=== PATIENT | male | born 1985 ===

== ENCOUNTER 2018-01-08 15:26 | Emergency (ER) | payer MEDICAID ==
[2018-01-08 15:33] VITALS: BP 144/78; PULSE 80; RESP 20; TEMP 98.4; O2SAT 100
--- NOTE | 2018-01-08 16:29 | C.PDOC ---
History Of Present Illness 32 year old male presents to the ED stating that he had a bowel movement today and noticed a "worm" present. Patient denies fever, chills, nausea, vomit, diarrhea, abdominal pain, rectal bleed, back pain, urinary symptoms, recent travel. Time Seen by Provider: 01/08/18 15:38 Chief Complaint (Nursing): GI Problem History Per: Patient History/Exam Limitations: no limitations Onset/Duration Of Symptoms: Hrs Current Symptoms Are (Timing): Still Present Severity: None Radiation Of Pain To:: None Quality Of Discomfort: Unable To Describe Exacerbating Factors: None Alleviating Factors: None Last Bowel Movement: Today Recent travel outside of the [place]: No Additional History Per: Patient Past Medical History Reviewed: Historical Data, Nursing Documentation, Vital Signs Vital Signs: Last Vital Signs Temp 98.4 F 01/08/18 15:30 Pulse 80 01/08/18 15:30 Resp 20 01/08/18 16:57 BP 144/78 01/08/18 15:30 Pulse Ox 100 01/08/18 16:49 - Medical History PMH: HTN Surgical History: No Surg Hx Family History: States: Unknown Family Hx - Social History Hx Alcohol Use: No Hx Substance Use: No - Immunization History Hx Tetanus Toxoid Vaccination: No Hx Influenza Vaccination: No Hx Pneumococcal Vaccination: No Review Of Systems Constitutional: Negative for: Fever, Chills Cardiovascular: Negative for: Chest Pain Respiratory: Negative for: Shortness of Breath Gastrointestinal: Negative for: Vomiting, Abdominal Pain, Diarrhea Skin: Negative for: Rash Neurological: Negative for: Weakness, Numbness Physical Exam - Physical Exam Appears: Non-toxic, No Acute Distress Skin: Normal Color, Warm, Dry Head: Atraumatic, Normacephalic Eye(s): bilateral: Normal Inspection Nose: No Discharge Oral Mucosa: Moist Neck: Normal ROM, Supple Gastrointestinal/Abdominal: Soft, No Tenderness, No Guarding, No Rebound Extremity: Normal ROM, No Tenderness, No Swelling Neurological/Psych: Oriented x3 Gait: Steady ED Course And Treatment O2 Sat by Pulse Oximetry: 100 (On RA) Pulse Ox Interpretation: Normal Medical Decision Making Medical Decision Making: Assessment: Normal exam Plan: * OVA and parasite * Fecal leukocytes Patient brought a small bag of stool sample with him with no gross worm visualized. Patient was able to go and provide stool sample in the ED. clinical impression: stool screening test Disposition Counseled Patient/Family Regarding: Studies Performed, Diagnosis, Need For Followup - Disposition Disposition: HOME/ ROUTINE Disposition Time: 16:46 Condition: STABLE Additional Instructions: follow up with your doctor or clinic in 2 days call to make an appointment return to ER if symptoms worsens or progress your stool results should be available in 1-2 days. Instructions: Stool Test Forms: [facility] (Occ[place]), General Discharge Instructions - Clinical Impression Clinical Impression: Encounter for screening fecal occult blood testing - Scribe Statement The provider has reviewed the documentation as recorded by the Scribe Santos Newton All medical record entries made by the Scribe were at my direction and personally dictated by me. I have reviewed the chart and agree that the record accurately reflects my personal performance of the history, physical exam, medical decision making, and the department course for this patient. I have also personally directed, reviewed, and agree with the discharge instructions and disposition.
== END 2018-01-08 16:57 | disposition home or self-care (01) ==
LOC: C.ER 15:26
DX: R19.5 Other fecal abnormalities (principal)

== ENCOUNTER 2018-04-24 19:19 | Emergency (ER) | payer MEDICAID ==
[2018-04-24] MEDS ORDERED: Amoxicillin-Clav 875-125 mg Tab PO STA (19:44)
--- NOTE | 2018-04-24 19:48 | C.PDOC ---
History Of Present Illness 32 yo male w/o significant PMHx come in for evaluation of cold sx for past 1 week associated with sore throat, dry cough. Pt reports, took oTC medication without significant improvement, " throat pain and swelling worsen", noted some neck swelling. Otherwise, pt denies high fever, chills, headache, dizziness, drooling, neck pain, CP, SOB, dyspnea, wheezing, abd. pain, V/D, back pain, UTI sx. Ambulate to Ed for evaluation, not in any apparent distress. Time Seen by Provider: 04/24/18 19:37 Chief Complaint (Nursing): ENT Problem History Per: Patient Onset/Duration Of Symptoms: Gradual Past Medical History Reviewed: Historical Data, Nursing Documentation, Vital Signs Vital Signs: Last Vital Signs Temp 99.0 F 04/24/18 19:33 Pulse 99 H 04/24/18 19:33 Resp 18 04/24/18 19:33 BP 144/79 04/24/18 19:33 Pulse Ox 96 04/24/18 19:33 - Medical History PMH: HTN (NO MEDS PER PT) Denies: Chronic Kidney Disease Surgical History: No Surg Hx Family History: States: Unknown Family Hx - Social History Hx Alcohol Use: No Hx Substance Use: No - Immunization History Hx Tetanus Toxoid Vaccination: No Hx Influenza Vaccination: No Hx Pneumococcal Vaccination: No Review Of Systems Except As Marked, All Systems Reviewed And Found Negative. Constitutional: Positive for: Malaise. Negative for: Fever, Chills Eyes: Negative for: Vision Change ENT: Positive for: Ear Pain, Nose Discharge, Nose Congestion, Throat Pain, Throat Swelling. Negative for: Ear Discharge Cardiovascular: Negative for: Chest Pain Respiratory: Positive for: Cough. Negative for: Shortness of Breath, Wheezing Gastrointestinal: Negative for: Nausea, Vomiting, Abdominal Pain, Diarrhea Genitourinary: Negative for: Dysuria Musculoskeletal: Negative for: Neck Pain Skin: Negative for: Rash Neurological: Negative for: Headache, Dizziness Physical Exam - Physical Exam Appears: Well, Non-toxic, No Acute Distress Skin: Normal Color, Warm, Dry, No Rash Head: Normacephalic Eye(s): bilateral: PERRL Ear(s): Bilateral: Normal Nose: No Flaring, Discharge (B/L nasal congestion with scant clear rhinorrhea ) Oral Mucosa: Moist, No Drooling Throat: Erythema (mod B/L), No Exudate (scant B/L), No Drooling Neck: Normal ROM, Trachea Midline, Supple Cardiovascular: Rhythm Regular, No Murmur, No JVD Respiratory: No Decreased Breath Sounds, No Accessory Muscle Use, No Stridor, No Wheezing Gastrointestinal/Abdominal: Soft, No Tenderness, No Distention, No Guarding Extremity: Normal ROM, No Deformity, No Swelling Neurological/Psych: Oriented x3, Normal Speech ED Course And Treatment O2 Sat by Pulse Oximetry: 96 Pulse Ox Interpretation: Normal Progress Note: On re-eval, pt is afebrile, hemodynamicaly stable. Non-toxic. Tolerate Po well in Ed. PulseOx 96% RA. ENT: exam c/w acute pharyngitis. neck : SUpple, (-) meningeal sign, (-) JVD. Lungs: CTA B/L, BS equal B/L. Abd: benign, (-) guarding, (-) rebound. Neurologicaly intact. Pt advised on course of ds. ref. to F/u with PMD, ENT In 2-3 days for re-evaluation. return to ED if any worsening or new changes. Disposition Counseled Patient/Family Regarding: Diagnosis, Need For Followup, Rx Given - Disposition Referrals: [facility] [Outside] Cristopher Escalona MD [Staff Provider] - Disposition: HOME/ ROUTINE Disposition Time: 19:49 Condition: STABLE Additional Instructions: Encourage fluids take medication as prescribed Follow up with PMD, ENT in2 -3 days for re-evaluation as need return to ED if any worsening or new changes. Prescriptions: Amoxicillin/Clavulanate [Augmentin 875 MG-125 MG] 1 tab PO BID #14 tab Prednisone [Deltasone] 40 mg PO DAILY #6 tablet Instructions: Sore Throat, Adult (DC) - Clinical Impression Clinical Impression: Pharyngitis
[2018-04-24] MEDS ORDERED: Amoxicillin-Clav 875-125 mg Tab PO ONE (19:50)
[2018-04-24 20:17] VITALS: BP 130/70; PULSE 80; RESP 14; TEMP 99; O2SAT 99
== END 2018-04-24 20:17 | disposition home or self-care (01) ==
LOC: C.ER 19:19
DX: J02.9 Acute pharyngitis, unspecified (principal)

== ENCOUNTER 2018-05-08 13:19 | Emergency (ER) | payer MEDICAID ==
[2018-05-08 13:29] VITALS: BP 133/83; PULSE 105; RESP 16; TEMP 99.4; O2SAT 95
--- NOTE | 2018-05-08 14:03 | C.PDOC ---
History Of Present Illness 32 yo male w/o significant PMHx come in for evaluation of throat irritation, dry cough gradually developed for past 1 week. Pt reports, was seen here 2 weeks ago due to same complaints, treated with Rx: Augmentin, Prednisone with moderate improvement in sx. Pt admits, " leave in [place] [facility] for past 4-5 weeks ". Pt sts, " as soon as I finish medication developed same symptoms again". Otherwise, pt denies fever, chills, headache, dizziness, drooling, dysphagia, dyspnea, throat tightness or swelling, wheezing, SOB,abd. pain, V/D, denies any other active complaints, denies previous hx of allergy. Ambulate to Ed for evaluation, not in any apparent distress. Time Seen by Provider: 05/08/18 13:31 Chief Complaint (Nursing): ENT Problem History Per: Patient Past Medical History Reviewed: Historical Data, Nursing Documentation, Vital Signs Vital Signs: Last Vital Signs Temp 99.4 F 05/08/18 13:26 Pulse 105 H 05/08/18 13:26 Resp 16 05/08/18 13:26 BP 133/83 05/08/18 13:26 Pulse Ox 95 05/08/18 13:26 - Medical History PMH: HTN Denies: Asthma, CAD, Diabetes, Chronic Kidney Disease Surgical History: No Surg Hx Family History: States: Unknown Family Hx - Social History Hx Tobacco Use: No Hx Alcohol Use: No Hx Substance Use: No - Immunization History Hx Tetanus Toxoid Vaccination: No Hx Influenza Vaccination: No Hx Pneumococcal Vaccination: No Review Of Systems Except As Marked, All Systems Reviewed And Found Negative. Constitutional: Negative for: Fever, Chills ENT: Positive for: Nose Congestion, Throat Pain. Negative for: Ear Discharge, Nose Discharge, Throat Swelling Cardiovascular: Negative for: Chest Pain, Palpitations, Orthopnea, Light Headedness Respiratory: Positive for: Cough. Negative for: Shortness of Breath, Wheezing Gastrointestinal: Negative for: Nausea, Vomiting, Abdominal Pain, Diarrhea Genitourinary: Negative for: Dysuria, Incontinence Musculoskeletal: Negative for: Neck Pain, Shoulder Pain Skin: Negative for: Rash Neurological: Negative for: Weakness, Numbness, Headache, Dizziness Physical Exam - Physical Exam Appears: Well, Non-toxic, No Acute Distress Skin: Normal Color, Warm, Dry, No Rash Head: Normacephalic Eye(s): bilateral: PERRL Ear(s): Bilateral: Normal Nose: No Flaring, No Discharge Oral Mucosa: Moist, No Drooling Tongue: No Swelling Lips: No Swelling Throat: No Erythema, No Drooling, Other (uvul amidline, no edema.) Neck: Normal ROM, Trachea Midline, Supple Cardiovascular: Rhythm Regular, No Murmur, No JVD Respiratory: No Decreased Breath Sounds, No Accessory Muscle Use, No Rales, No Rhonchi, No Stridor, No Wheezing Gastrointestinal/Abdominal: Soft, No Tenderness, No Distention, No Guarding Back: No CVA Tenderness, No Vertebral Tenderness, Paraspinal Tenderness (mild lumbar) Extremity: Normal ROM, No Deformity, No Swelling Neurological/Psych: Oriented x3, Normal Speech, Normal Motor, Normal Sensation, Normal Reflexes ED Course And Treatment O2 Sat by Pulse Oximetry: 95 Pulse Ox Interpretation: Normal Progress Note: On re-eval, pt is afebrile, hemodynamically stable. Non-toxic. Tolerate Po well in ED. PulseOx 95% on RA. ENT: no acute findings. uvula midline, no edema. Neck: Supple, (-) JVD, (-) carotid bruits B/L. Lungs: CTA B/ L, BS equal B/L. Abd: benign, (-) guarding, (-) rebound. Back: (-) CVA tenderness. Neurologically intact. Patient has clinical findings c/w throat irritation, dry cough, recurrent sx for past 3-4 weeks r/o environmental allergy. Pt advised and ref. to F/U with PMD, [facility] In 2-3 days for re- eval. return to ED if any worsening or new changes. Disposition Counseled Patient/Family Regarding: Diagnosis, Need For Followup, Rx Given - Disposition Referrals: [facility] [Outside] Disposition: HOME/ ROUTINE Disposition Time: 14:00 Condition: STABLE Additional Instructions: Avoid allergen likely environmental take medication as prescribed Follow up with PMD, [facility] in 2 days for re-evaluation. return if any new changes. Prescriptions: Famotidine [Pepcid] 20 mg PO BID #10 tab hydrOXYzine HCl [Atarax] 25 mg PO Q12 #10 tab Prednisone [Deltasone] 20 mg PO DAILY #4 tablet Instructions: Adverse Drug Reactions, Adult, House Dust Mite Allergen Extract - Clinical Impression Clinical Impression: Allergic reaction
== END 2018-05-08 14:49 | disposition home or self-care (01) ==
LOC: C.ER 13:19
DX: T78.40XA Allergy, unspecified, initial encounter (principal)

== ENCOUNTER 2018-08-13 15:54 | Emergency (ER) | payer MEDICAID ==
[2018-08-13 16:03] VITALS: BP 143/94; PULSE 94; RESP 18; TEMP 98.6; O2SAT 98
[2018-08-13 17:23] LABS: BARBITURATES, UR NEGATIVE (NEGATIVE); BENZODIAZEPINES, UR NEGATIVE (NEGATIVE); OPIATES, UR NEGATIVE (NEGATIVE); PHENCYCLIDINE, UR NEGATIVE (NEGATIVE)
--- NOTE | 2018-08-13 17:39 | C.PDOC ---
History Of Present Illness 33-year-old male, presents to the emergency department for evaluation of superficial abrasion to hand. Patient states he is currently homeless, and while he was at the custodial sleeping, he states he thinks "someone stuck me with a heroin needle." Patient denies any symptoms, but feels like he has opiates in his system and is requesting a drug test. Time Seen by Provider: 08/13/18 16:08 Chief Complaint (Nursing): Finger,Hand,&Wrist History Per: Patient History/Exam Limitations: no limitations Pain Scale Rating Of: 0 Past Medical History Reviewed: Historical Data, Nursing Documentation, Vital Signs Vital Signs: Last Vital Signs Temp 98.6 F 08/13/18 15:58 Pulse 94 H 08/13/18 15:58 Resp 18 08/13/18 15:58 BP 143/94 H 08/13/18 15:58 Pulse Ox 98 08/13/18 15:58 - Medical History PMH: HTN, Hypercholesterolemia Denies: Asthma, CAD, Diabetes, Chronic Kidney Disease Family History: States: No Known Family Hx - Social History Hx Tobacco Use: No Hx Alcohol Use: No Hx Substance Use: No - Immunization History Hx Tetanus Toxoid Vaccination: No Hx Influenza Vaccination: No Hx Pneumococcal Vaccination: No Review Of Systems Constitutional: Negative for: Fever Gastrointestinal: Negative for: Vomiting Psych: Negative for: Psychosis Physical Exam - Physical Exam Appears: Non-toxic, No Acute Distress Skin: Warm, Dry, No Rash Head: Atraumatic, Normacephalic Eye(s): bilateral: Normal Inspection Nose: Normal Oral Mucosa: Moist Neck: Normal ROM, Supple Chest: Symmetrical Extremity: Normal ROM, No Tenderness, No Deformity, No Swelling, Other ((+) pinpoint macule to the left hand. No puncture wounds seen ) Neurological/Psych: Oriented x3, Normal Speech, Normal Motor Gait: Steady ED Course And Treatment O2 Sat by Pulse Oximetry: 98 (on RA) Pulse Ox Interpretation: Normal (RA) Disposition - Disposition Referrals: at [facility] [Outside] Disposition: HOME/ ROUTINE Disposition Time: 17:38 Condition: STABLE Additional Instructions: Return if worsened. Instructions: Wound Care (DC) Forms: [employer] [facility] (Estonian) - Clinical Impression Clinical Impression: Encounter for medical assessment - Scribe Statement The provider has reviewed the documentation as recorded by the Scribe (Elissa Nix) All medical record entries made by the Scribe were at my direction and personally dictated by me. I have reviewed the chart and agree that the record accurately reflects my personal performance of the history, physical exam, medical decision making, and the department course for this patient. I have also personally directed, reviewed, and agree with the discharge instructions and disposition.
== END 2018-08-13 17:42 | disposition home or self-care (01) ==
LOC: C.ER 15:54
DX: Z00.00 Encounter for general adult medical examination without abnormal findings (principal)

== ENCOUNTER 2018-10-26 13:16 | Inpatient (IN) | payer MEDICAID ==
[2018-10-26] MEDS ORDERED: Sodium Chloride 0.9% 1,000 ML IV ONE (13:55)
[2018-10-26] MEDS ORDERED: Sodium Chloride 0.9% 1,000 ML ONE (14:18)
--- NOTE | 2018-10-26 14:21 | C.PDOC ---
History Of Present Illness 33 y/o male presents to the ED with a 2 day history of cough and congestion. Patient states symptoms have progressed today, he woke with fever and bodyaches. Otherwise he denies any abdominal pain, vomiting, diarrhea, urinary complaints, chest pain, or SOB. HPI: Influenza Time Seen by Provider: 10/26/18 13:46 Chief Complaint: Flu-like Symptoms Chief Complaint (Provider): Flu-like Symptoms History Per: Patient Exam Limitations: no limitations Onset/Duration Of Symptoms: Days (2) Symptoms include: fever, bodyaches, cough, nasal congestion Past Medical History Reviewed: Historical Data, Nursing Documentation, Vital Signs Vital Signs: Last Vital Signs Temp 103 F H 10/26/18 13:19 Pulse 138 H 10/26/18 13:19 Resp 20 10/26/18 13:19 BP 164/94 H 10/26/18 13:19 Pulse Ox 97 10/26/18 13:19 - Medical History PMH: HTN, Hypercholesterolemia Denies: Asthma, CAD, Diabetes, Chronic Kidney Disease Surgical History: No Surg Hx Family History: States: Unknown Family Hx - Social History Hx Tobacco Use: No Hx Alcohol Use: No Hx Substance Use: No - Immunization History Hx Tetanus Toxoid Vaccination: Yes Hx Influenza Vaccination: No Hx Pneumococcal Vaccination: No Review Of Systems Except As Marked, All Systems Reviewed And Found Negative. Constitutional: Positive for: Fever, Other (Bodyaches) ENT: Positive for: Nose Congestion Cardiovascular: Negative for: Chest Pain Respiratory: Positive for: Cough. Negative for: Shortness of Breath Gastrointestinal: Negative for: Vomiting, Abdominal Pain, Diarrhea Genitourinary: Negative for: Dysuria, Hematuria Skin: Negative for: Rash Neurological: Negative for: Weakness, Dizziness Physical Exam - Physical Exam Appears: Non-toxic, No Acute Distress, Other (Febrile, temp 103) Skin: Warm, Dry Head: Atraumatic, Normacephalic Eye(s): bilateral: Normal Inspection, PERRL, EOMI Oral Mucosa: Moist Neck: Normal ROM Chest: Symmetrical Cardiovascular: Rhythm Regular, No Murmur Respiratory: Other (coarse breath sounds bilaterally) Gastrointestinal/Abdominal: Soft, No Tenderness, No Distention Extremity: Bilateral: Atraumatic, Normal Color And Temperature Pulses: Left Dorsalis Pedis: Normal, Right Dorsalis Pedis: Normal Neurological/Psych: Oriented x3 Medical Decision Making Medical Decision Making: Impression: Flu-like symptoms Plan: --CBC, CMP --Flu swab --CXR --IV fluids --30 mg IV Toradol --975 mg PO Tylenol Progress/Updates: Labs reviewed, elevated WBC 12k. (+) Flu A. Patient treated with 75 mg PO Tamiflu. CXR shows +RLL infiltrate. Will treat for pneumonia with IV zithro and rocephin. Patient spiked a fever, temp 103. Given 2nd dose of Tylenol 975mg. 1915 Patient spiked fever again. Will admit patient to [facility], Dr. Omer notified. Dr. Barragan notified for ID consult. IV Toradol was ordered for the 2nd time and then cancelled, however nurse had already administered medication. Patient did receive a total of 60 mg Toradol, 5 hours apart. However, patient weighs 120 kg and has no hx of kidney problems. - Laboratory Results Result Diagrams: 10/26/18 14:12 10/26/18 14:12 Lab Results: + flu A - ECG O2 Sat by Pulse Oximetry: 97 (RA) Pulse Ox Interpretation: Normal - Radiology X-Ray: Read By Radiologist X-Ray Interpretation: Infiltrates Disposition Discussed With .: Jasmin Omer Doctor Will See Patient In The: Hospital Counseled Patient/Family Regarding: Studies Performed, Diagnosis - Disposition Disposition: HOSPITALIZED Disposition Time: 19:19 Condition: FAIR - POA Core Measure Indicators: Pneumonia - Clinical Impression Clinical Impression: Influenza, Pneumonia - Scribe Statement The provider has reviewed the documentation as recorded by the Vianneyiblei Pollack Provider Attestation: All medical record entries made by the Dilshad were at my direction and personally dictated by me. I have reviewed the chart and agree that the record accurately reflects my personal performance of the history, physical exam, medical decision making, and the department course for this patient. I have also personally directed, reviewed, and agree with the discharge instructions and disposition.
[2018-10-26 14:23] LABS: BASO # 0.1 K/uL (0.0-0.2); BASO % 1.1 % (0.0-2.0); EOS # 0.1 K/uL (0.0-0.7); EOS % 0.8 % (0.0-4.0); HEMOGLOBIN 14.5 g/dL (12.0-18.0); LYMPH # 0.6 K/uL (1.0-4.3); LYMPH % 4.8 % (20.0-40.0); MEAN CELL VOLUME 89.5 fL (80.0-94.0); MEAN CORPUSCULAR HEMOGLOBIN 29.9 pg (27.0-31.0); MEAN CORPUSCULAR HGB CONC 33.4 g/dL (33.0-37.0); MEAN PLATELET VOLUME 7.5 fL (7.2-11.7); MONO # 0.5 K/uL (0.0-0.8); MONO % 4.4 % (0.0-10.0); NEUT # 10.7 K/uL (1.8-7.0); NEUT % 88.9 % (50.0-75.0); NRBC % 0.1 % (0.0-2.0); PLATELET COUNT 352 K/uL (130-400); RBC 4.86 Mil/uL (4.40-5.90); RED CELL DISTRIBUTION WIDTH 13.5 % (11.5-14.5)
[2018-10-26 14:37] LABS: ALB/GLOB RATIO 1.5 (1.0-2.1); ALBUMIN 5.1 g/dL (3.5-5.0); ALT/SGPT 33 U/L (21-72); AST/SGOT 34 U/L (17-59); BLOOD UREA NITROGEN 13 mg/dL (9-20); CALCIUM 9.3 mg/dl (8.6-10.4); GFR NON-AFRICAN AMERICAN > 60
[2018-10-26 15:20] LABS: EOSINOPHIL 3 % (0-4); LYMPHOCYTE 5 % (20-40); MONOCYTE 1 % (0-10); NEUTROPHIL 91 % (50-75); PLATELET ESTIMATE NORMAL (NORMAL); TOTAL CELLS COUNTED 100
--- NOTE | 2018-10-26 16:15 | RAD ---
HISTORY: SOB COMPARISON: None available. TECHNIQUE: Chest PA and lateral FINDINGS: Examination limited by habitus and hypoinflation. LUNGS: Medial right lower lobe atelectasis/infiltrate. Please note that chest x-ray has limited sensitivity for the detection of pulmonary masses. PLEURA: No significant pleural effusion identified. No definite pneumothorax . CARDIOVASCULAR: Heart size appears within normal limits. No significant atherosclerotic calcification identified. OSSEOUS STRUCTURES: Degenerative changes. VISUALIZED UPPER ABDOMEN: Unremarkable. OTHER FINDINGS: None. IMPRESSION: Medial right lower lobe atelectasis/infiltrate. Hypoinflation.
[2018-10-26] MEDS: Sodium Chloride 0.9% 1,000 ML IV SCH (16:40)
[2018-10-26] MEDS ORDERED: Azithromycin 500 MG in Sodium Chloride 0.9% 250 ML IVPB STA (18:07)
[2018-10-26] MEDS ORDERED: Azithromycin 500mg/250ML NS 500 MG/250 ML BAG IVPB ONE (18:46)
[2018-10-26 20:13] LABS: VENOUS BLOOD GAS BASE EXCESS -2.2 mmol/L (0.0-2.0); VENOUS BLOOD GAS PCO2 37 mmHg (40-60); VENOUS BLOOD GAS PO2 49 mm/Hg (30-55); VENOUS BLOOD PH 7.39 (7.32-7.43)
[2018-10-26] MEDS ORDERED: Piperacillin/Tazobact 3.375 gm 100 ML IVPB ONE (21:02)
[2018-10-26] MEDS: Piperacillin/Tazobact 3.375 GM in Sodium Chloride 100 ML IVPB SCH (21:10)
[2018-10-27] MEDS: Sodium Chloride 0.9% 1,000 ML IV SCH ×3 (06:43→22:30)
[2018-10-27 08:12] LABS: BASO % 0.5 % (0.0-2.0); EOS % 0.4 % (0.0-4.0); HEMOGLOBIN 12.8 g/dL (12.0-18.0); LYMPH # 0.7 K/uL (1.0-4.3); MEAN CELL VOLUME 89.2 fL (80.0-94.0); MEAN CORPUSCULAR HEMOGLOBIN 29.6 pg (27.0-31.0); MEAN CORPUSCULAR HGB CONC 33.2 g/dL (33.0-37.0); MEAN PLATELET VOLUME 7.2 fL (7.2-11.7); MONO # 0.8 K/uL (0.0-0.8); MONO % 8.8 % (0.0-10.0); NEUT # 7.3 K/uL (1.8-7.0); NEUT % 82.3 % (50.0-75.0); PLATELET COUNT 279 K/uL (130-400); RBC 4.34 Mil/uL (4.40-5.90); RED CELL DISTRIBUTION WIDTH 13.4 % (11.5-14.5); WHITE BLOOD COUNT 8.9 K/uL (4.8-10.8)
[2018-10-27] MEDS: Piperacillin/Tazobact 3.375 GM in Sodium Chloride 100 ML IVPB SCH ×3 (08:26→21:35)
[2018-10-27 08:34] LABS: ALB/GLOB RATIO 1.4 (1.0-2.1); ALBUMIN 4.3 g/dL (3.5-5.0); ALT/SGPT 40 U/L (21-72); AST/SGOT 33 U/L (17-59); BLOOD UREA NITROGEN 13 mg/dL (9-20); CALCIUM 8.5 mg/dl (8.6-10.4); GFR NON-AFRICAN AMERICAN > 60
[2018-10-27] MEDS: Azithromycin 500 MG in Sodium Chloride 0.9% 250 ML IVPB SCH (09:31)
[2018-10-27] MEDS: Enoxaparin 40 mg Syringe SC SCH (09:31)
[2018-10-27 10:46] LABS: BANDS 3 % (0-2); LYMPHOCYTE 7 % (20-40); MONOCYTE 8 % (0-10); NEUTROPHIL 82 % (50-75); PLATELET ESTIMATE NORMAL (NORMAL); STOMATOCYTES SLIGHT; TOTAL CELLS COUNTED 100
--- NOTE | 2018-10-27 15:03 | CP.PCM.CON ---
History of Present Illness - History of Present Illness History of Present Illness: INFECTIOUS DISEASE CONSULT; HPI; 33-year-old male with history of hypertension, hypercholesterolemia, history of herniated disc who was admitted on 10/26/18 with 2 day history of cough, congestion and fevers with severe body aches. Patient states he was outside waiting for transit and felt the cold. Patient also complains of productive cough with yellowish greenish phlegm. On admission, patient was found to have positive influenza A antibody rapid antigen test with chest x-ray showing right lower lobe pneumonia/atelectasis. Patient was also found to be febrile to 103.7 in the ER. Infectious disease consultation requested by PMD for flu and pneumonia. PATIENT WAS STARTED ON BROAD-SPECTRUM ANTIBIOTICS INCLUDING rOCEPHIN 1 DOSE, zITHROMAX 500 MG ONE DOSE AND BY MOUTH tAMIFLU 75 MG. PATIENT DENIES ANY SICK CONTACTS OR RECENT EXPOSURE TO ANYBODY WITH FLU. pATIENT DENIES ANY TRAVEL. pATIENT DENIES HISTORY OF PREVIOUS PNEUMONIA.NO HISTORY OF SMOKING. PMH: HTN, Hypercholesterolemia Denies: Asthma, CAD, Diabetes, Chronic Kidney Disease Surgical History: No Surg Hx Family History: States: Unknown Family Hx - Social History Hx Tobacco Use: No Hx Alcohol Use: No Hx Substance Use: No - Immunization History Hx Tetanus Toxoid Vaccination: Yes Hx Influenza Vaccination: No Hx Pneumococcal Vaccination: No ALLERGY; NKA Review of Systems - Review of Systems All systems: reviewed and no additional remarkable complaints except ( PER HP I.) - Constitutional Constitutional: Chills, Fever - EENT Nose/Mouth/Throat: absent: Mouth Lesions - Cardiovascular Cardiovascular: Dyspnea. absent: Chest Pain - Respiratory Respiratory: Cough, Chest Congestion, Excessive Mucous Production, Change in Mucous Color - Gastrointestinal Gastrointestinal: absent: Abdominal Pain, Diarrhea, Nausea, Vomiting - Genitourinary Genitourinary: absent: Dysuria - Neurological Neurological: absent: Dizziness - Hematologic/Lymphatic Hematologic: As Per HPI Past Patient History - Infectious Disease Hx of Infectious Diseases: None - Past Medical History & Family History Past Medical History?: Yes - Past Social History Smoking Status: Never Smoked - CARDIAC Hx Cardiac Disorders: Yes Hx Hypercholesterolemia: Yes Hx Hypertension: Yes - PULMONARY Hx Respiratory Disorders: No - NEUROLOGICAL Hx Neurological Disorder: No - HEENT Hx HEENT Problems: No - RENAL Hx Chronic Kidney Disease: No - ENDOCRINE/METABOLIC Hx Endocrine Disorders: No - HEMATOLOGICAL/ONCOLOGICAL Hx Blood Disorders: No - INTEGUMENTARY Hx Dermatological Problems: No - MUSCULOSKELETAL/RHEUMATOLOGICAL Hx Musculoskeletal Disorders: No Hx Falls: No - GASTROINTESTINAL Hx Gastrointestinal Disorders: No - GENITOURINARY/GYNECOLOGICAL Hx Genitourinary Disorders: No - PSYCHIATRIC Hx Psychophysiologic Disorder: No Hx Substance Use: No - SURGICAL HISTORY Hx Surgeries: No - ANESTHESIA Hx Anesthesia: No Meds Home Medications: Home Medication List Medication Instructions Recorded Confirmed Type Oseltamivir Phosphate [Tamiflu] 75 mg PO BID #10 capsule 10/26/18 Rx Allergies/Adverse Reactions: Allergies Allergy/AdvReac Type Severity Reaction Status Date / Time No Known Allergies Allergy Verified 10/26/18 13:23 - Medications Medications: Current Medications Acetaminophen (Tylenol 325mg Tab) 650 mg PO Q6 PRN PRN Reason: for pain and fever Enoxaparin Sodium (Lovenox) 40 mg SC DAILY [facility] Last Admin: 10/27/18 09:31 Dose: 40 mg Famotidine (Pepcid) 20 mg PO BID [facility] Last Admin: 10/27/18 09:31 Dose: 20 mg Sodium Chloride (Sodium Chloride 0.9%) 1,000 mls @ 100 mls/hr IV .Q10H [facility] Last Admin: 10/27/18 12:41 Dose: Not Given Azithromycin 500 mg/ Sodium (Chloride) 250 mls @ 250 mls/hr IVPB DAILY [facility]; Protocol Last Admin: 10/27/18 09:31 Dose: 250 mls/hr Piperacillin Sod/Tazobactam (Sod 3.375 gm/ Sodium Chloride) 100 mls @ 200 mls/hr IVPB Q6H [facility]; Protocol Last Admin: 10/27/18 14:00 Dose: 200 mls/hr Oseltamivir Phosphate (Tamiflu Cap) 75 mg PO BID [facility]; Protocol Stop: 10/31/18 20:32 Last Admin: 10/27/18 09:31 Dose: 75 mg Physical Exam - Constitutional Appears: No Acute Distress - Head Exam Head Exam: NORMAL INSPECTION - Eye Exam Eye Exam: EOMI, PERRL - ENT Exam ENT Exam: Normal Oropharynx - Neck Exam Neck exam: Positive for: Normal Inspection - Respiratory Exam Respiratory Exam: Rhonchi (RIGHT-SIDED), NORMAL BREATHING PATTERN (.) - Cardiovascular Exam Cardiovascular Exam: REGULAR RHYTHM, +S1, +S2 - GI/Abdominal Exam GI & Abdominal Exam: Normal Bowel Sounds, Soft. absent: Organomegaly - Extremities Exam Extremities exam: Positive for: normal capillary refill, pedal pulses present. Negative for: calf tenderness, pedal edema - Neurological Exam Neurological exam: Alert, CN II-XII Intact, Oriented x3, Reflexes Normal - Psychiatric Exam Psychiatric exam: Normal Mood - Skin Skin Exam: Normal Color, Warm Results - Vital Signs Recent Vital Signs: Last Vital Signs Temp 100.3 F H 10/27/18 08:06 Pulse 121 H 10/27/18 08:06 Resp 21 10/27/18 08:06 BP 121/64 10/27/18 08:06 Pulse Ox 91 L 10/27/18 08:06 - Labs Result Diagrams: 10/27/18 08:05 10/27/18 08:05 Labs: Laboratory Results - last 24 hr 10/26/18 10/26/18 10/27/18 14:12 20:00 08:05 WBC 8.9 RBC 4.34 L Hgb 12.8 Hct 38.7 MCV 89.2 MCH 29.6 MCHC 33.2 RDW 13.4 Plt Count 279 MPV 7.2 Neut % (Auto) 82.3 H Lymph % (Auto) 8.0 L Vermilion % (Auto) 8.8 Eos % (Auto) 0.4 Baso % (Auto) 0.5 Neut # (Auto) 7.3 H Lymph # (Auto) 0.7 L [place] # (Auto) 0.8 Eos # (Auto) 0.0 Baso # (Auto) 0.0 Neutrophils % (Manual) 91 H 82 H Band Neutrophils % 3 H Lymphocytes % (Manual) 5 L 7 L Monocytes % (Manual) 1 8 Eosinophils % (Manual) 3 Platelet Estimate Normal Normal RBC Morphology Normal Stomatocytes Slight pO2 49 VBG pH 7.39 VBG pCO2 37 L VBG HCO3 22.8 VBG Total CO2 23.5 VBG O2 Sat (Calc) 89.5 H VBG Base Excess -2.2 L VBG Potassium 3.5 L Sodium 139.0 Chloride 105.0 Glucose 88 Lactate 1.3 Potassium Carbon Dioxide Anion Gap BUN Creatinine Est GFR ( Amer) Est GFR (Non-Af Amer) Random Glucose Calcium Total Bilirubin AST ALT Alkaline Phosphatase Total Protein Albumin Globulin Albumin/Globulin Ratio Venous Blood Potassium 3.5 L 10/27/18 08:05 WBC RBC Hgb Hct MCV MCH MCHC RDW Plt Count MPV Neut % (Auto) Lymph % (Auto) Vermilion % (Auto) Eos % (Auto) Baso % (Auto) Neut # (Auto) Lymph # (Auto) Vermilion # (Auto) Eos # (Auto) Baso # (Auto) Neutrophils % (Manual) Band Neutrophils % Lymphocytes % (Manual) Monocytes % (Manual) Eosinophils % (Manual) Platelet Estimate RBC Morphology Stomatocytes pO2 VBG pH VBG pCO2 VBG HCO3 VBG Total CO2 VBG O2 Sat (Calc) VBG Base Excess VBG Potassium Sodium 136 Chloride 104 Glucose Lactate Potassium 3.7 Carbon Dioxide 25 Anion Gap 11 BUN 13 Creatinine 1.1 Est GFR ( Amer) > 60 Est GFR (Non-Af Amer) > 60 Random Glucose 100 Calcium 8.5 L Total Bilirubin 0.4 AST 33 ALT 40 Alkaline Phosphatase 76 Total Protein 7.3 Albumin 4.3 Globulin 3.0 Albumin/Globulin Ratio 1.4 Venous Blood Potassium - Imaging and Cardiology Chest x-ray Status: Report reviewed by me (see report) Assessment & Plan (1) Influenza Status: Acute (2) Pneumonia Status: Acute - Assessment and Plan (Free Text) Plan: PLAN; PANCULTURES sPUTUM GRAM STAIN AND CULTURE MRSA SCREEN. DROPLET PRECAUTIONS START zOSYN 3.375 EVERY 6 HOURLY. 10/26/18. CONTINUE zITHROMAX 500 MG iv PIGGYBACK ONCE A DAY DAILY. 10/26/18 TAMIFLU 75 MG BY MOUTH TWICE A DAY FOR 5 DAYS.10/26/18 fOLLOW-UP CULTURES TO ADJUST ANTIBIOTICS. WILL FOLLOW ALONG WITH YOU AND MAKE FURTHER RECOMMENDATIONS NEEDED.
[2018-10-27 22:18] LABS: BASO # 0.1 K/uL (0.0-0.2); BASO % 0.8 % (0.0-2.0); EOS # 0.1 K/uL (0.0-0.7); EOS % 1.2 % (0.0-4.0); HEMOGLOBIN 12.7 g/dL (12.0-18.0); LYMPH # 1.4 K/uL (1.0-4.3); MEAN CELL VOLUME 89.6 fL (80.0-94.0); MEAN CORPUSCULAR HEMOGLOBIN 28.8 pg (27.0-31.0); MEAN CORPUSCULAR HGB CONC 32.2 g/dL (33.0-37.0); MEAN PLATELET VOLUME 7.2 fL (7.2-11.7); MONO # 0.9 K/uL (0.0-0.8); MONO % 13.6 % (0.0-10.0); NEUT # 4.4 K/uL (1.8-7.0); NEUT % 64.4 % (50.0-75.0); NRBC % 0.1 % (0.0-2.0); RBC 4.4 Mil/uL (4.40-5.90); RED CELL DISTRIBUTION WIDTH 13.4 % (11.5-14.5); WHITE BLOOD COUNT 6.9 K/uL (4.8-10.8)
[2018-10-28] MEDS: Piperacillin/Tazobact 3.375 GM in Sodium Chloride 100 ML IVPB SCH ×4 (03:30→21:27)
[2018-10-28] MEDS: Sodium Chloride 0.9% 1,000 ML IV SCH ×2 (08:09→17:49)
[2018-10-28 08:54] LABS: HEMOGLOBIN 13.7 g/dL (12.0-18.0); MEAN CORPUSCULAR HEMOGLOBIN 29.3 pg (27.0-31.0); MEAN CORPUSCULAR HGB CONC 32.2 g/dL (33.0-37.0); MEAN PLATELET VOLUME 7.3 fL (7.2-11.7); RBC 4.66 Mil/uL (4.40-5.90); RED CELL DISTRIBUTION WIDTH 13.8 % (11.5-14.5); WHITE BLOOD COUNT 6.1 K/uL (4.8-10.8)
[2018-10-28 09:05] LABS: BLOOD UREA NITROGEN 10 mg/dL (9-20); CALCIUM 8.4 mg/dl (8.6-10.4); GFR NON-AFRICAN AMERICAN > 60
[2018-10-28] MEDS: Enoxaparin 40 mg Syringe SC SCH (09:39)
[2018-10-28] MEDS: Azithromycin 500 MG in Sodium Chloride 0.9% 250 ML IVPB SCH (09:40)
--- NOTE | 2018-10-28 12:01 | HP ---
CHIEF COMPLAINT: Flu-like symptoms. HISTORY OF PRESENT ILLNESS: The patient is a 33-year-old male with two-day history of coughing, congestion, runny nose, postnasal drip. The patient states that symptoms have progressed . Today, he woke up with fever and body aches. Otherwise, he denies any abdominal pain. No nausea, vomiting, diarrhea. No hematuria or hematochezia. No chest pain, but main thing is fever, body aches, coughing, nasal congestion. PAST MEDICAL HISTORY: Hypertension, hypercholesterolemia. FAMILY HISTORY: Father and mother noncontributory. HABITS: Tobacco, no. Alcohol, no. Substance abuse, no. REVIEW OF SYSTEMS: The patient was seen and examined at the bedside. He is on isolation due to fluid precautions. No fever, no chills. No hematemesis. No hematochezia. No swelling of the leg. No chest pain. No palpitation. feeling better. PHYSICAL EXAMINATION: VITAL SIGNS: Temperature 99.3, T-max is 102.9, pulse 101, blood pressure 130/78, respiratory rate 20. HEENT: Head, normocephalic and atraumatic. Eyes, PERRLA. Extraocular muscles are intact. Conjunctivae clear. Nose patent. NECK: Supple. No carotid bruit. No JVD or thyromegaly. CHEST: Bilaterally symmetrical. HEART: S1, S2 positive. LUNGS: Clear to auscultation. ABDOMEN: Soft. Bowel sounds present. No organomegaly. EXTREMITIES: No edema. No cyanosis. NEUROLOGIC: The patient is awake and alert. Moving all four extremities. No focal deficit. LABORATORY DATA: White blood cells on admission was 12, when repeated it was 8.7; hemoglobin 12.8; hematocrit 38.7; platelet 279. Sodium 136, potassium 3.7, BUN 30, creatinine 1.1, glucose 8.5. ASSESSMENT AND PLAN: The patient is a 33-year-old male with leukocytosis, hypocalcemia. The patient had significant past medical history; came with fever, shortness of breath, fatigue. The patient was started on broad-spectrum antibiotics including Rocephin one dose, Zithromax one dose, and started Tamiflu. The patient denies any sick contact for the to anybody with flu. The patient denies any travel. No previous pneumonia or history of smoking. The patient is put on isolation for influenza, getting antibiotics for pneumonia. Nelson culture is done. Sputum, gram stain cultures done. Started on Zosyn. Gastric and deep venous thrombosis prophylaxis. Repeat labs. We will follow up. Jasmin Omer MD MTDD
--- NOTE | 2018-10-28 14:30 | CP.PCM.PN ---
Subjective - Date & Time of Evaluation Date of Evaluation: 10/28/18 Time of Evaluation: 14:30 Objective - Vital Signs/Intake and Output Vital Signs (last 24 hours): Temp Pulse Resp BP Pulse Ox 97.8 F 85 20 126/78 96 10/28/18 08:02 10/28/18 08:02 10/28/18 08:02 10/28/18 08:02 10/28/18 08:02 - Medications Medications: Current Medications Acetaminophen (Tylenol 325mg Tab) 650 mg PO Q6 PRN PRN Reason: for pain and fever Last Admin: 10/28/18 01:04 Dose: 650 mg Enoxaparin Sodium (Lovenox) 40 mg SC DAILY [facility] Last Admin: 10/28/18 09:39 Dose: 40 mg Famotidine (Pepcid) 20 mg PO BID [facility] Last Admin: 10/28/18 09:40 Dose: 20 mg Sodium Chloride (Sodium Chloride 0.9%) 1,000 mls @ 100 mls/hr IV .Q10H [facility] Last Admin: 10/28/18 08:09 Dose: 100 mls/hr Azithromycin 500 mg/ Sodium (Chloride) 250 mls @ 250 mls/hr IVPB DAILY [facility]; Protocol Last Admin: 10/28/18 09:40 Dose: 250 mls/hr Piperacillin Sod/Tazobactam (Sod 3.375 gm/ Sodium Chloride) 100 mls @ 200 mls/hr IVPB Q6H [facility]; Protocol Last Admin: 10/28/18 13:42 Dose: 200 mls/hr Oseltamivir Phosphate (Tamiflu Cap) 75 mg PO BID [facility]; Protocol Stop: 10/31/18 20:32 Last Admin: 10/28/18 09:40 Dose: 75 mg - Labs Labs: 10/28/18 08:43 10/28/18 08:43 Assessment and Plan (1) Influenza Status: Acute (2) Pneumonia Status: Acute
--- NOTE | 2018-10-28 20:45 | CP.PCM.PN ---
Subjective - Date & Time of Evaluation Date of Evaluation: 10/28/18 Time of Evaluation: 20:45 - Subjective Subjective: AFEBRILE. LESS CONGESTED. FEELS BETTER Objective - Vital Signs/Intake and Output Vital Signs (last 24 hours): Temp Pulse Resp BP Pulse Ox 98.5 F 94 H 20 130/83 95 10/28/18 16:00 10/28/18 16:00 10/28/18 16:00 10/28/18 16:00 10/28/18 16:00 Intake and Output: 10/28/18 10/29/18 18:59 06:59 Intake Total 550 Balance 550 - Medications Medications: Current Medications Acetaminophen (Tylenol 325mg Tab) 650 mg PO Q6 PRN PRN Reason: for pain and fever Last Admin: 10/28/18 01:04 Dose: 650 mg Enoxaparin Sodium (Lovenox) 40 mg SC DAILY [facility] Last Admin: 10/28/18 09:39 Dose: 40 mg Famotidine (Pepcid) 20 mg PO BID [facility] Last Admin: 10/28/18 17:49 Dose: 20 mg Sodium Chloride (Sodium Chloride 0.9%) 1,000 mls @ 100 mls/hr IV .Q10H [facility] Last Admin: 10/28/18 17:49 Dose: 100 mls/hr Azithromycin 500 mg/ Sodium (Chloride) 250 mls @ 250 mls/hr IVPB DAILY [facility]; Pro tocol Last Admin: 10/28/18 09:40 Dose: 250 mls/hr Piperacillin Sod/Tazobactam (Sod 3.375 gm/ Sodium Chloride) 100 mls @ 200 mls/hr IVPB Q6H [facility]; Protocol Last Admin: 10/28/18 13:42 Dose: 200 mls/hr Oseltamivir Phosphate (Tamiflu Cap) 75 mg PO BID [facility]; Protocol Stop: 10/31/18 20:32 Last Admin: 10/28/18 17:49 Dose: 75 mg - Labs Labs: 10/28/18 08:43 10/28/18 08:43 - Constitutional Appears: No Acute Distress - Head Exam Head Exam: NORMAL INSPECTION - Eye Exam Eye Exam: EOMI, PERRL. absent: Scleral icterus - ENT Exam ENT Exam: Normal Oropharynx - Respiratory Exam Respiratory Exam: Rhonchi (BASILAR), NORMAL BREATHING PATTERN - Cardiovascular Exam Cardiovascular Exam: REGULAR RHYTHM, +S1, +S2 - GI/Abdominal Exam GI & Abdominal Exam: Soft, Normal Bowel Sounds - Extremities Exam Extremities Exam: Normal Capillary Refill. absent: Calf Tenderness, Pedal Edema - Neurological Exam Neurological Exam: Alert, Awake, CN II-XII Intact, Oriented x3, Reflexes Normal - Psychiatric Exam Psychiatric exam: Normal Mood - Skin Skin Exam: Normal Color, Warm Assessment and Plan (1) Influenza Status: Acute (2) Pneumonia Status: Acute - Assessment and Plan (Free Text) Plan: PLAN CONTINUE IV zOSYN 3.375 EVERY 6 HOURLY. 10/26/18. CONTINUE ZITHROMAX 500 MG iv PIGGYBACK ONCE A DAY DAILY. 10/26/18 TAMIFLU 75 MG BY MOUTH TWICE A DAY FOR 5 DAYS.10/26/18 fOLLOW-UP CULTURES TO ADJUST ANTIBIOTICS. MRSA SCREEN -VE DROPLET PRECAUTIONS
[2018-10-29] MEDS: Piperacillin/Tazobact 3.375 GM in Sodium Chloride 100 ML IVPB SCH ×4 (03:30→19:30)
[2018-10-29] MEDS: Sodium Chloride 0.9% 1,000 ML IV SCH ×2 (06:00→14:40)
--- NOTE | 2018-10-29 06:13 | PN ---
DATE: 10/28/2018 SUBJECTIVE: The patient is a 33-year-old male. The patient was seen and examined at the bedside on 10/28/2018. Looking comfortable. No fever. No chills. No hematuria or hematochezia. Coughing is better. Shortness of breath is better. ID is on the case. PHYSICAL EXAMINATION: VITAL SIGNS: Temperature 98.5, pulse 94, respiratory rate 20, blood pressure 130/86, pulse oximetry is 95. HEENT: Head: Normocephalic and atraumatic. Eyes: PERRLA. Extraocular muscles are intact. Conjunctivae clear. Nose patent. Mucous membranes moist. NECK: Supple. No carotid bruit. No JVD or thyromegaly. CHEST: Bilaterally symmetrical. HEART: S1 and S2 are positive. LUNGS: Clear to auscultation. ABDOMEN: Soft. Bowel sounds present. No organomegaly. EXTREMITIES: No edema. No cyanosis. NEUROLOGIC: The patient is awake and alert. Moving all four extremities. No focal deficit. MEDICATIONS: Tylenol, Lovenox, Pepcid, NS, azithromycin, piperacillin-tazobactam, Tamiflu. LABORATORY DATA: White blood cells 6.1, hemoglobin 13.4, hematocrit 42.4. Sodium 137, potassium 4.2, BUN noted , creatinine 0.9. ASSESSMENT AND PLAN: The patient is a 33-year-old male with influenza, getting Tamiflu; pneumonia, getting double antibiotics, Zithromax and piperacillin/tazobactam. The patient is on isolation. Infectious Disease is on the case. Gastrointestinal and deep venous thrombosis prophylaxis. Repeat labs. We will follow up. Jasmin Omer MD ANTHONY
[2018-10-29] MEDS: Enoxaparin 40 mg Syringe SC SCH (10:18)
[2018-10-29] MEDS: Azithromycin 500 MG in Sodium Chloride 0.9% 250 ML IVPB SCH (10:19)
--- NOTE | 2018-10-29 22:59 | CP.PCM.PN ---
Subjective - Date & Time of Evaluation Date of Evaluation: 10/29/18 Time of Evaluation: 22:58 - Subjective Subjective: AFEBRILE. LESS CONGESTED. FEELS BETTER LESS COUGH. LABS MRSA-VE ALL CULTURES -VE F/U CXR Objective - Vital Signs/Intake and Output Vital Signs (last 24 hours): Temp Pulse Resp BP Pulse Ox 98.3 F 93 H 20 133/90 96 10/29/18 15:00 10/29/18 15:00 10/29/18 15:00 10/29/18 15:00 10/29/18 15:00 Intake and Output: 10/29/18 10/30/18 18:59 06:59 Intake Total 450 1000 Balance 450 1000 - Medications Medications: Current Medications Acetaminophen (Tylenol 325mg Tab) 650 mg PO Q6 PRN PRN Reason: for pain and fever Last Admin: 10/28/18 01:04 Dose: 650 mg Enoxaparin Sodium (Lovenox) 40 mg SC DAILY [facility] Last Admin: 10/29/18 10:18 Dose: 40 mg Famotidine (Pepcid) 20 mg PO BID [facility] Last Admin: 10/29/18 17:01 Dose: 20 mg Azithromycin 500 mg/ Sodium (Chloride) 250 mls @ 250 mls/hr IVPB DAILY [facility]; Protocol Last Admin: 10/29/18 10:19 Dose: 250 mls/hr Piperacillin Sod/Tazobactam (Sod 3.375 gm/ Sodium Chloride) 100 mls @ 200 mls/hr IVPB Q6H [facility]; Protocol Last Admin: 10/29/18 19:30 Dose: 200 mls/hr Oseltamivir Phosphate (Tamiflu Cap) 75 mg PO BID [facility]; Protocol Stop: 10/31/18 20:32 Last Admin: 10/29/18 17:01 Dose: 75 mg - Labs Labs: 10/28/18 08:43 10/28/18 08:43 - Constitutional Appears: No Acute Distress - Head Exam Head Exam: NORMAL INSPECTION - Eye Exam Eye Exam: EOMI, PERRL - ENT Exam ENT Exam: Normal Oropharynx - Neck Exam Neck Exam: Normal Inspection - Respiratory Exam Respiratory Exam: Clear to Ausculation Bilateral, NORMAL BREATHING PATTERN - Cardiovascular Exam Cardiovascular Exam: REGULAR RHYTHM, +S1, +S2 - GI/Abdominal Exam GI & Abdominal Exam: Soft, Normal Bowel Sounds - Extremities Exam Extremities Exam: absent: Calf Tenderness, Pedal Edema - Neurological Exam Neurological Exam: Awake, CN II-XII Intact, Oriented x3, Reflexes Normal - Psychiatric Exam Psychiatric exam: Normal Mood - Skin Skin Exam: Normal Color, Warm Assessment and Plan (1) Influenza Status: Acute (2) Pneumonia Status: Acute - Assessment and Plan (Free Text) Plan: CONTINUE IV ZOSYN 3.375 EVERY 6 HOURLY. 10/26/18. CONTINUE ZITHROMAX 500 MG iv PIGGYBACK ONCE A DAY DAILY. 10/26/18 TAMIFLU 75 MG BY MOUTH TWICE A DAY FOR 5 DAYS.10/26/18 F/U CXR . DROPLET PRECAUTIONS
[2018-10-30] MEDS: Piperacillin/Tazobact 3.375 GM in Sodium Chloride 100 ML IVPB SCH ×3 (02:24→14:31)
--- NOTE | 2018-10-30 04:00 | PN ---
DATE: 10/29/2018 SUBJECTIVE: The patient is a 33-year-old male. The patient was seen and examined at the bedside on 10/29/2018. Looking comfortable. No fever. No chills. No hematuria. No hematochezia. No swelling of the legs. No chest pain. No palpitation. No headache. No dizziness. PHYSICAL EXAMINATION: VITAL SIGNS: Temperature 98.3, pulse 93, respiratory rate 20, blood pressure 133/90, and pulse oxymetry 96%. HEENT: Head: Normocephalic and atraumatic. Eyes: PERRLA. Extraocular muscles intact. Conjunctivae clear. Nose patent. Mucous membranes moist. NECK: Supple. No carotid bruits. No JVD or thyromegaly. CHEST: Bilaterally symmetrical. HEART: S1 and S2, positive. LUNGS: Clear to auscultation. ABDOMEN: Soft. Bowel sounds present. No organomegaly. EXTREMITIES: No edema. No cyanosis. NEUROLOGIC: The patient is awake and alert. Moving all four extremities. No focal deficits. MEDICATIONS: Tylenol, Lovenox, Pepcid, azithromycin, Zosyn, Tamiflu. LABORATORY DATA: White blood cells 6.1, hemoglobin 13.7, hematocrit 42.4, platelets 312. Sodium 137, potassium 4.2, BUN 10, creatinine 0.9, glucose 87. ASSESSMENT AND PLAN: Mr. Chon Sánchez is a 33-year-old male with influenza, pneumonia, got antibiotics, improved. Seen by Dr. Kevyn Barragan. Gastrointestinal and deep venous thrombosis prophylaxis. Repeat laboratories. We will follow up. Jasmin Omer MD
--- NOTE | 2018-10-30 08:35 | RAD ---
Chest x-ray single frontal view HISTORY: Pneumonia. COMPARISON: 10/26/2018 Findings: Persistent patchy increased consolidative changes in the right mid to lower lung zone medially suggestive for underlying infiltrate and or atelectasis. Mild nodularity in the right midlung zone. Mild patchy increased markings at the left lung base. Cardiomegaly. Degenerative changes in the spine. Impression: Persistent patchy increased consolidative changes in the right mid to lower lung zone medially suggestive for underlying infiltrate and or atelectasis. Mild nodularity in the right midlung zone. Mild patchy increased markings at the left lung base. Cardiomegaly.
[2018-10-30 08:37] LABS: BASO % 0.5 % (0.0-2.0); EOS # 0.3 K/uL (0.0-0.7); EOS % 4.3 % (0.0-4.0); HEMOGLOBIN 13.9 g/dL (12.0-18.0); LYMPH # 1.6 K/uL (1.0-4.3); LYMPH % 26.3 % (20.0-40.0); MEAN CELL VOLUME 89.8 fL (80.0-94.0); MEAN CORPUSCULAR HEMOGLOBIN 30.1 pg (27.0-31.0); MEAN CORPUSCULAR HGB CONC 33.5 g/dL (33.0-37.0); MEAN PLATELET VOLUME 7.2 fL (7.2-11.7); MONO # 0.3 K/uL (0.0-0.8); NEUT # 3.8 K/uL (1.8-7.0); NEUT % 63.9 % (50.0-75.0); RBC 4.64 Mil/uL (4.40-5.90); RED CELL DISTRIBUTION WIDTH 13.2 % (11.5-14.5)
[2018-10-30 09:15] LABS: ALB/GLOB RATIO 1.4 (1.0-2.1); ALBUMIN 4.4 g/dL (3.5-5.0); ALT/SGPT 27 U/L (21-72); AST/SGOT 24 U/L (17-59); BLOOD UREA NITROGEN 11 mg/dL (9-20); CALCIUM 8.9 mg/dl (8.6-10.4); GFR NON-AFRICAN AMERICAN > 60
[2018-10-30] MEDS: Enoxaparin 40 mg Syringe SC SCH (09:15)
[2018-10-30] MEDS: Azithromycin 500 MG in Sodium Chloride 0.9% 250 ML IVPB SCH (09:59)
--- NOTE | 2018-10-30 14:37 | CP.PCM.PN ---
Subjective - Date & Time of Evaluation Date of Evaluation: 10/30/18 Time of Evaluation: 14:37 - Subjective Subjective: AFEBRILE, NO NEW COMPLAINTS. expectoration whitish now CXR REPEAT NOTED increasing consolidative changes both lungs. Case discussed with PMD. Objective - Vital Signs/Intake and Output Vital Signs (last 24 hours): Temp Pulse Resp BP Pulse Ox 97.9 F 80 20 142/93 H 95 10/30/18 07:30 10/30/18 07:30 10/30/18 07:30 10/30/18 07:30 10/30/18 07:30 Intake and Output: 10/30/18 10/30/18 06:59 18:59 Intake Total 1000 Balance 1000 - Medications Medications: Current Medications Acetaminophen (Tylenol 325mg Tab) 650 mg PO Q6 PRN PRN Reason: for pain and fever Last Admin: 10/28/18 01:04 Dose: 650 mg Enoxaparin Sodium (Lovenox) 40 mg SC DAILY [facility] Last Admin: 10/30/18 09:15 Dose: 40 mg Famotidine (Pepcid) 20 mg PO BID [facility] Last Admin: 10/30/18 09:15 Dose: 20 mg Azithromycin 500 mg/ Sodium (Chloride) 250 mls @ 250 mls/hr IVPB DAILY [facility]; Protocol Last Admin: 10/30/18 09:59 Dose: 250 mls/hr Piperacillin Sod/Tazobactam (Sod 3.375 gm/ Sodium Chloride) 100 mls @ 200 mls/hr IVPB Q6H [facility]; Protocol Last Admin: 10/30/18 14:31 Dose: 200 mls/hr Oseltamivir Phosphate (Tamiflu Cap) 75 mg PO BID [facility]; Protocol Stop: 10/31/18 20:32 Last Admin: 10/30/18 09:15 Dose: 75 mg - Labs Labs: 10/30/18 08:31 10/30/18 08:31 - Constitutional Appears: No Acute Distress - Head Exam Head Exam: NORMAL INSPECTION - Eye Exam Eye Exam: EOMI, PERRL - ENT Exam ENT Exam: Normal Oropharynx - Respiratory Exam Respiratory Exam: Rhonchi (BILATERAL), NORMAL BREATHING PATTERN - Cardiovascular Exam Cardiovascular Exam: REGULAR RHYTHM, +S1 - GI/Abdominal Exam GI & Abdominal Exam: Soft, Normal Bowel Sounds - Extremities Exam Extremities Exam: Normal Capillary Refill. absent: Calf Tenderness, Pedal Edema - Neurological Exam Neurological Exam: Awake, CN II-XII Intact, Oriented x3, Reflexes Normal - Psychiatric Exam Psychiatric exam: Normal Mood - Skin Skin Exam: Normal Color Assessment and Plan (1) Influenza Status: Acute (2) Pneumonia Status: Acute - Assessment and Plan (Free Text) Plan: PLAN DC IV ZOSYN 3.375 EVERY 6 HOURLY. 10/26/18. START iv CEFEPIME 1 G EVERY 8 HOURLY 10/30/18 CONTINUE ZITHROMAX 500 MG iv PIGGYBACK ONCE A DAY DAILY. 10/26/18 QFT -gOLD tb TEST ORDERED. CONTINUE PO TAMIFLU 75 MG BY MOUTH TWICE A DAY FOR 5 DAYS.10/26/18 F/U CT CHEST -oRDERED DROPLET PRECAUTIONS
--- NOTE | 2018-10-30 17:34 | CT ---
CT chest HISTORY: Worsening pneumonia. Comparison: X-ray dated 10/30/2018 Technique: Multiple contiguous axial images were performed through the chest without the use of intravenous contrast. Subsequently, sagittal and coronal reformatted images were obtained. This CT exam was performed using one or more hello of the following dose reduction techniques: Automated exposure control, adjustment of the mA and/or kV according to patient size, and/or use of iterative reconstruction technique. Findings: Right lung: Prominent focal area of linear consolidative changes seen within the medial aspect of the right middle lobe on series 3 images 57 through 60. Additional prominent areas of linear consolidative changes seen within the right lower lobe posteriorly at its superior and inferior aspects. Left lung: Mild scattered areas of consolidative changes seen within the inferior aspect of the left upper lobe/lingula. Additional patchy consolidation seen within the posterior aspect of the left lower lobe. Linear consolidation extending more superiorly in the left lower lobe. Trachea thru central airways are patent. No significant axillary adenopathy. Heterogeneity of the thyroid. Shotty mediastinal lymph nodes including a 1.8 centimeter prevascular lymph node. 9 millimeter precarinal lymph node. No significant hilar adenopathy. No pleural or pericardial effusion. Prominent liver and spleen. Degenerative changes in the spine. Impression: Scattered multifocal areas of linear consolidative changes seen within both lungs as described above with additional consolidation seen within the left lower lobe. Clinical correlation. Post treatment interval follow-up study is recommended to ensure resolution and exclude residual disease. Mediastinal lymph nodes as described above. Additional findings as above.
--- NOTE | 2018-10-31 02:49 | PN ---
DATE: 10/30/2018 SUBJECTIVE: The patient is a 33-year-old male. The patient was seen and examined at the bedside on 10/30/2018. Cough is better. Shortness of breath is better. No nausea, vomiting, or diarrhea. No hematuria or hematochezia. No swelling of the leg. No headache. No dizziness. PHYSICAL EXAMINATION: VITAL SIGNS: Temperature 97.9, pulse 80, respiratory rate 20, blood pressure 140/90, and pulse oximetry 95. HEENT: Head: Normocephalic and atraumatic. Eyes: PERRLA. Extraocular muscles intact. Conjunctivae clear. Nose patent. Mucous membranes moist. NECK: Supple. No carotid bruit. No JVD or thyromegaly. CHEST: Bilaterally symmetrical. HEART: S1 and S2, positive. LUNGS: Clear to auscultation. ABDOMEN: Soft. Bowel sounds present. No organomegaly. EXTREMITIES: No edema. No cyanosis. NEUROLOGIC: The patient is awake and alert. Moving all four extremities. No focal deficits. MEDICATIONS: Tylenol, Lovenox, Pepcid, azithromycin, piperacillin/tazobactam, and Tamiflu. LABORATORY DATA: White blood cells 6, hemoglobin 13.9, hematocrit 41.6, platelets 333. Sodium 138, potassium 4, BUN 11, creatinine 0.9, and glucose 91. ASSESSMENT AND PLAN: Mr. Chon Sánchez is a 33-year-old male with pneumonia, influenza. Seen by Infectious Disease. Getting antibiotics. Went for CAT scan of the chest . showed Scattered multifocal areas of linear consolidation. Changes seen with both lungs with a decent consolidation seen within the left lower lobe. Posttreatment interval followup studies recommended. Ensure resolution and exclude residual disease. Mediastinal lymph node is present. Required pulmonary consult with Dr. Beto Stock. We will follow up. Out of bed, physical therapy. Gastrointestinal and deep venous thrombosis prophylaxis. Jasmin Omer MD MTDTracey
[2018-10-31 08:46] LABS: HEMOGLOBIN 14.2 g/dL (12.0-18.0); MEAN CORPUSCULAR HEMOGLOBIN 30.1 pg (27.0-31.0); MEAN CORPUSCULAR HGB CONC 33.4 g/dL (33.0-37.0); MEAN PLATELET VOLUME 7.3 fL (7.2-11.7); RBC 4.73 Mil/uL (4.40-5.90); RED CELL DISTRIBUTION WIDTH 13.6 % (11.5-14.5); WHITE BLOOD COUNT 5.4 K/uL (4.8-10.8)
[2018-10-31 09:09] LABS: BLOOD UREA NITROGEN 12 mg/dL (9-20); GFR NON-AFRICAN AMERICAN > 60
--- NOTE | 2018-10-31 10:02 | CP.PCM.CON ---
History of Present Illness - History of Present Illness History of Present Illness: Reason for consult: Worsening pneumonia. Pulmonary Consult, Covering Dr Lehman The Patient was seen and examined at the bedside, Medical records reviewed, and management issues were discussed and formulated with the house staff. Events reviewed Mr Sánchez is a 33 Years old Man with HTN, Hypercholesterolemia Who resents to the ED on 10/26 with a 2 day history of cough, congestion, fever and body aches. He states symptoms have progressed today. Denies chest pain, SOB, abdominal pain, N/vomiting or diarrhea. In the ER Patient spiked a fever to 103. CXR revealed RLL infiltrate. Admitted with community acquired pneumonia Also Pos for influenza A Started on Empiric antibiotics with IV Zosyn, Zithromax and Tamiflu 75 mg PO BID Blood and Sputum cultures negative to date. Chest x-ray single frontal view: 10/30/2018 08:29:30 Impression: Persistent patchy increased consolidative changes in the right mid to lower lung zone medially suggestive for underlying infiltrate and or atelectasis. Mild nodularity in the right midlung zone. Mild patchy increased markings at the left lung base. Cardiomegaly. Chest CT scan W/O contrast: : 10/30/2018 15:43:39 Right lung: Prominent focal area of linear consolidative changes seen within the medial aspect of the right middle lobe on series 3 images 57 through 60. Additional prominent areas of linear consolidative changes seen within the right lower lobe posteriorly at its superior and inferior aspects. Left lung: Mild scattered areas of consolidative changes seen within the inferior aspect of the left upper lobe/lingula. Additional patchy consolidation seen within the posterior aspect of the left lower lobe. Linear consolidation extending more superiorly in the left lower lobe. Trachea thru central airways are patent. No significant axillary adenopathy. Heterogeneity of the thyroid. Shotty mediastinal lymph nodes including a 1.8 centimeter prevascular lymph node. 9 millimeter precarinal lymph node. No significant hilar adenopathy. No pleural or pericardial effusion. Review of Systems - Review of Systems Systems not reviewed;Unavailable: Acuity of Condition - Constitutional Constitutional: Chills - Cardiovascular Cardiovascular: absent: Chest Pain, Chest Pain at Rest, Chest Pain with Activity - Respiratory Respiratory: Cough, Dyspnea, Dyspnea on Exertion. absent: Hemoptysis, Wheezing, Snoring Past Patient History - Infectious Disease Hx of Infectious Diseases: None - Past Medical History & Family History Past Medical History?: Yes - Past Social History Smoking Status: Never Smoked - CARDIAC Hx Cardiac Disorders: Yes Hx Hypercholesterolemia: Yes Hx Hypertension: Yes - PULMONARY Hx Respiratory Disorders: No - NEUROLOGICAL Hx Neurological Disorder: No - HEENT Hx HEENT Problems: No - RENAL Hx Chronic Kidney Disease: No - ENDOCRINE/METABOLIC Hx Endocrine Disorders: No - HEMATOLOGICAL/ONCOLOGICAL Hx Blood Disorders: No - INTEGUMENTARY Hx Dermatological Problems: No - MUSCULOSKELETAL/RHEUMATOLOGICAL Hx Musculoskeletal Disorders: No Hx Falls: No - GASTROINTESTINAL Hx Gastrointestinal Disorders: No - GENITOURINARY/GYNECOLOGICAL Hx Genitourinary Disorders: No - PSYCHIATRIC Hx Psychophysiologic Disorder: No Hx Substance Use: No - SURGICAL HISTORY Hx Surgeries: No - ANESTHESIA Hx Anesthesia: No Meds Home Medications: Home Medication List Medication Instructions Recorded Confirmed Type Oseltamivir Phosphate [Tamiflu] 75 mg PO BID #10 capsule 10/26/18 Rx Allergies/Adverse Reactions: Allergies Allergy/AdvReac Type Severity Reaction Status Date / Time No Known Allergies Allergy Verified 10/26/18 13:23 - Medications Medications: Current Medications Acetaminophen (Tylenol 325mg Tab) 650 mg PO Q6 PRN PRN Reason: for pain and fever Last Admin: 10/28/18 01:04 Dose: 650 mg Enoxaparin Sodium (Lovenox) 40 mg SC DAILY [facility] Last Admin: 10/30/18 09:15 Dose: 40 mg Famotidine (Pepcid) 20 mg PO BID [facility] Last Admin: 10/30/18 17:05 Dose: 20 mg Azithromycin 500 mg/ Sodium (Chloride) 250 mls @ 250 mls/hr IVPB DAILY [facility]; Protocol Last Admin: 10/30/18 09:59 Dose: 250 mls/hr Cefepime HCl 1 gm/ Dextrose 50 mls @ 100 mls/hr IVPB Q8H [facility]; Protocol Last Admin: 10/31/18 04:36 Dose: 100 mls/hr Oseltamivir Phosphate (Tamiflu Cap) 75 mg PO BID [facility]; Protocol Stop: 10/31/18 20:32 Last Admin: 10/30/18 17:05 Dose: 75 mg Physical Exam - Head Exam Head Exam: ATRAUMATIC - Eye Exam Eye Exam: EOMI, Normal appearance. absent: Conjunctival injection Pupil Exam: NORMAL ACCOMODATION - ENT Exam ENT Exam: Mucous Membranes Moist - Neck Exam Neck exam: Positive for: Normal Inspection. Negative for: Lymphadenopathy, Tenderness, Thyromegaly - Respiratory Exam Respiratory Exam: Decreased Breath Sounds, Rales, Rhonchi. absent: Accessory Muscle Use, Chest Wall Tenderness, Clear to Auscultation Bilateral, Prolonged Expiratory Phase, Wheezes, Respiratory Distress - Cardiovascular Exam Cardiovascular Exam: REGULAR RHYTHM - GI/Abdominal Exam GI & Abdominal Exam: Normal Bowel Sounds, Soft. absent: Tenderness - Back Exam Back exam: absent: CVA tenderness (L), CVA tenderness (R) - Neurological Exam Neurological exam: Alert, CN II-XII Intact, Oriented x3 Results - Vital Signs Recent Vital Signs: Last Vital Signs Temp 98.1 F 10/31/18 07:00 Pulse 75 10/31/18 07:00 Resp 20 10/31/18 07:00 BP 130/86 10/31/18 07:00 Pulse Ox 97 10/31/18 07:00 - Labs Result Diagrams: 10/31/18 08:38 10/31/18 08:38 Labs: Laboratory Results - last 24 hr 10/31/18 10/31/18 08:38 08:38 WBC 5.4 RBC 4.73 Hgb 14.2 Hct 42.6 MCV 90.0 MCH 30.1 MCHC 33.4 RDW 13.6 Plt Count 341 MPV 7.3 Sodium 139 Potassium 4.1 Chloride 104 Carbon Dioxide 27 Anion Gap 12 BUN 12 Creatinine 0.9 Est GFR ( Amer) > 60 Est GFR (Non-Af Amer) > 60 Random Glucose 89 Calcium 9.0 Assessment & Plan (1) Influenza Status: Acute Priority: High (2) Pneumonia Status: Acute Priority: High (3) Sepsis Status: Acute Priority: High - Assessment and Plan (Free Text) Assessment: Patient is years old a 33 non-smoker male 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
[2018-10-31] MEDS: Azithromycin 500 MG in Sodium Chloride 0.9% 250 ML IVPB SCH (10:05)
[2018-10-31] MEDS: Enoxaparin 40 mg Syringe SC SCH (10:05)
[2018-11-01 07:43] LABS: BLOOD UREA NITROGEN 15 mg/dL (9-20); CALCIUM 9.1 mg/dl (8.6-10.4); GFR NON-AFRICAN AMERICAN > 60
[2018-11-01] MEDS: Azithromycin 500 MG in Sodium Chloride 0.9% 250 ML IVPB SCH (09:12)
[2018-11-01] MEDS: Enoxaparin 40 mg Syringe SC SCH (09:13)
[2018-11-01 11:11] LABS: STREP PNEUMONIAE NEGATIVE (NEGATIVE)
[2018-11-01 11:38] LABS: BASO # 0.1 K/uL (0.0-0.2); BASO % 0.9 % (0.0-2.0); EOS # 0.2 K/uL (0.0-0.7); EOS % 2.7 % (0.0-4.0); HEMOGLOBIN 14.8 g/dL (12.0-18.0); LYMPH # 1.8 K/uL (1.0-4.3); LYMPH % 24.9 % (20.0-40.0); MEAN CELL VOLUME 90.5 fL (80.0-94.0); MEAN CORPUSCULAR HGB CONC 33.2 g/dL (33.0-37.0); MEAN PLATELET VOLUME 7.6 fL (7.2-11.7); MONO # 0.4 K/uL (0.0-0.8); MONO % 5.2 % (0.0-10.0); NEUT # 4.9 K/uL (1.8-7.0); NEUT % 66.3 % (50.0-75.0); NRBC % 0.2 % (0.0-2.0); RBC 4.93 Mil/uL (4.40-5.90); RED CELL DISTRIBUTION WIDTH 13.4 % (11.5-14.5); WHITE BLOOD COUNT 7.4 K/uL (4.8-10.8)
--- NOTE | 2018-11-01 11:38 | CP.PCM.PN ---
Subjective - Date & Time of Evaluation Date of Evaluation: 11/01/18 Time of Evaluation: 11:38 - Subjective Subjective: afebrile, denies SOB, +VE COUGH PRODUCTIVE WHITISH NOW. CXR 11/01/18 IMPROVEMENT PATCHY INFILTRATE.. Objective - Vital Signs/Intake and Output Vital Signs (last 24 hours): Temp Pulse Resp BP Pulse Ox 88 F L 81 20 116/69 95 11/01/18 08:26 11/01/18 08:26 11/01/18 08:26 11/01/18 08:26 11/01/18 08:26 Intake and Output: 11/01/18 11/01/18 06:59 18:59 Intake Total 550 Output Total 300 Balance 250 - Medications Medications: Current Medications Acetaminophen (Tylenol 325mg Tab) 650 mg PO Q6 PRN PRN Reason: for pain and fever Last Admin: 10/28/18 01:04 Dose: 650 mg Enoxaparin Sodium (Lovenox) 40 mg SC DAILY [facility] Last Admin: 11/01/18 09:13 Dose: 40 mg Famotidine (Pepcid) 20 mg PO BID [facility] Last Admin: 11/01/18 09:13 Dose: 20 mg Cefepime HCl 1 gm/ Dextrose 50 mls @ 100 mls/hr IVPB Q8H [facility]; Protocol Last Admin: 11/01/18 04:19 Dose: 100 mls/hr - Labs Labs: 10/31/18 08:38 11/01/18 07:12 - Constitutional Appears: No Acute Distress - Head Exam Head Exam: NORMAL INSPECTION - Eye Exam Eye Exam: EOMI, PERRL - ENT Exam ENT Exam: Normal Oropharynx - Neck Exam Neck Exam: Normal Inspection - Respiratory Exam Respiratory Exam: Rhonchi (B/L), NORMAL BREATHING PATTERN - Cardiovascular Exam Cardiovascular Exam: REGULAR RHYTHM, +S1, +S2 - GI/Abdominal Exam GI & Abdominal Exam: Soft, Normal Bowel Sounds - Extremities Exam Extremities Exam: absent: Calf Tenderness, Pedal Edema - Neurological Exam Neurological Exam: Alert, Awake, CN II-XII Intact, Oriented x3 - Psychiatric Exam Psychiatric exam: Normal Mood - Skin Skin Exam: Normal Color, Warm Assessment and Plan (1) Influenza Status: Acute (2) Pneumonia Status: Acute - Assessment and Plan (Free Text) Plan: ON iv CEFEPIME 1 G EVERY 8 HOURLY 10/30/18 CONTINUE ZITHROMAX 500 MG iv PIGGYBACK ONCE A DAY DAILY. 10/26/18 QFT -gOLD tb - P SPUTUM AF[employer] X3 IN PROGRESS OFF PO TAMIFLU 75 MG BY MOUTH TWICE A DAY .-COMPLETED ON DROPLET PRECAUTIONS FOR INFLUENZA.
--- NOTE | 2018-11-01 12:15 | RAD ---
Date of service: 11/01/2018 PROCEDURE: CHEST RADIOGRAPH, 1 VIEW HISTORY: f/u COMPARISON: 10/30/2018. single-view chest. 10/30/2018 CT thorax. FINDINGS: LUNGS: Improved aeration of lungs. PLEURA: No pneumothorax or pleural fluid seen. CARDIOVASCULAR: No aortic atherosclerotic calcification present. Normal. OSSEOUS STRUCTURES: No significant abnormalities. VISUALIZED UPPER ABDOMEN: Normal. OTHER FINDINGS: None. IMPRESSION: Interval improvement in patchy infiltrates identified on prior chest radiograph and follow-up CT scan.
--- NOTE | 2018-11-01 12:26 | PN ---
DATE: 10/31/2018 SUBJECTIVE: The patient is a 33-year-old male. The patient was seen and examined at the bedside on 10/31/2018. The patient came with cough and shortness of breath. According to him, no chest pain, shortness of breath is better. No abdominal pain. No nausea, vomiting, or diarrhea. No hematuria or hematochezia. No swelling of the leg. No headache. No dizziness. No more fever. PHYSICAL EXAMINATION: VITAL SIGNS: Temperature 98.1, pulse 75, respiratory rate 20, blood pressure 130/80, and pulse oximetry 97. HEENT: Head: Normocephalic and atraumatic. Eyes: PERRLA. Extraocular muscles intact. Conjunctivae clear. Nose patent. Mucous membranes moist. NECK: Supple. No carotid bruit. No JVD or thyromegaly. CHEST: Bilaterally symmetrical. HEART: S1 and S2 positive. LUNGS: Positive wheezing. ABDOMEN: Soft. Bowel sounds present. No organomegaly. EXTREMITIES: No edema. No cyanosis. NEUROLOGIC: The patient is awake and alert. Moving all four extremities. No focal deficits. LABORATORY DATA: White blood cells 5.4, hemoglobin 14.2, hematocrit 42.6, platelets 341. Sodium 139, potassium 4.1, BUN 12, creatinine 0.9, and glucose 86. MEDICATIONS: Tylenol, Lovenox, Pepcid, azithromycin, cefepime and Tamiflu. ASSESSMENT AND PLAN: Mr. Chon Sánchez is a 33-year-old male who came with influenza, pneumonia, and sepsis. 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 Discussion done with Infectious Disease. Continue current antibiotics, Clinically, the patient feels better. Lengthy family discussion done with the patient's sister. We will repeat chest x-rays. According to Pulmonary, maybe the patient needs bronchoscopy if needed as per Dr. Tho Andrew. Gastrointestinal prophylaxis, repeat labs and we will follow up. Jasmin Omer MD [facility]TD[facility]
--- NOTE | 2018-11-02 00:49 | CP.PCM.PN ---
Subjective - Date & Time of Evaluation Date of Evaluation: 11/01/18 Time of Evaluation: 02:00 - Subjective Subjective: pt is seen and examined at bed side , cough, sob better . getting anb as per id Objective - Vital Signs/Intake and Output Vital Signs (last 24 hours): Temp Pulse Resp BP Pulse Ox 99.9 F H 99 H 20 133/82 95 11/01/18 17:34 11/01/18 17:34 11/01/18 17:34 11/01/18 17:34 11/01/18 17:34 Intake and Output: 11/01/18 11/02/18 18:59 06:59 Intake Total 800 300 Balance 800 300 - Medications Medications: Current Medications Acetaminophen (Tylenol 325mg Tab) 650 mg PO Q6 PRN PRN Reason: for pain and fever Last Admin: 10/28/18 01:04 Dose: 650 mg Enoxaparin Sodium (Lovenox) 40 mg SC DAILY [facility] Last Admin: 11/01/18 09:13 Dose: 40 mg Famotidine (Pepcid) 20 mg PO BID [facility] Last Admin: 11/01/18 18:10 Dose: 20 mg Cefepime HCl 1 gm/ Dextrose 50 mls @ 100 mls/hr IVPB Q8H [facility]; Protocol Last Admin: 11/01/18 19:25 Dose: 100 mls/hr - Labs Labs: 11/01/18 11:18 11/01/18 07:12
[2018-11-02] MEDS: Azithromycin 500 MG in Sodium Chloride 0.9% 250 ML IVPB SCH (09:46)
[2018-11-02] MEDS: Enoxaparin 40 mg Syringe SC SCH (09:49)
--- NOTE | 2018-11-02 14:31 | CP.PCM.PN ---
Subjective - Date & Time of Evaluation Date of Evaluation: 11/02/18 Time of Evaluation: 14:31 - Subjective Subjective: afebrile, denies SOB, +VE COUGH PRODUCTIVE WHITISH NOW. CXR 11/01/18 IMPROVEMENT PATCHY INFILTRATE.. SEEN BY PULMONARY. AWAIT QFT GOLD TB TEST. SPUTUM FOR AFB X3 -P Objective - Vital Signs/Intake and Output Vital Signs (last 24 hours): Temp Pulse Resp BP Pulse Ox 98.1 F 94 H 20 110/67 95 11/02/18 07:00 11/02/18 07:00 11/02/18 07:00 11/02/18 07:00 11/02/18 07:00 Intake and Output: 11/02/18 11/02/18 06:59 18:59 Intake Total 350 Output Total 250 Balance 100 - Medications Medications: Current Medications Acetaminophen (Tylenol 325mg Tab) 650 mg PO Q6 PRN PRN Reason: for pain and fever Last Admin: 10/28/18 01:04 Dose: 650 mg Enoxaparin Sodium (Lovenox) 40 mg SC DAILY [facility] Last Admin: 11/02/18 09:49 Dose: 40 mg Famotidine (Pepcid) 20 mg PO BID [facility] Last Admin: 11/02/18 09:49 Dose: 20 mg Cefepime HCl 1 gm/ Dextrose 50 mls @ 100 mls/hr IVPB Q8H [facility]; Protocol Last Admin: 11/02/18 11:47 Dose: 100 mls/hr Azithromycin 500 mg/ Sodium (Chloride) 250 mls @ 250 mls/hr IVPB DAILY [facility]; Protocol Last Admin: 11/02/18 09:46 Dose: 250 mls/hr - Labs Labs: 11/01/18 11:18 11/01/18 07:12 - Constitutional Appears: No Acute Distress - Head Exam Head Exam: NORMAL INSPECTION - Eye Exam Eye Exam: EOMI, PERRL - ENT Exam ENT Exam: Normal Oropharynx - Neck Exam Neck Exam: Normal Inspection - Respiratory Exam Respiratory Exam: Rhonchi (SCATTERRED RHONCHI) - Cardiovascular Exam Cardiovascular Exam: REGULAR RHYTHM, +S1, +S2 - GI/Abdominal Exam GI & Abdominal Exam: Soft, Normal Bowel Sounds - Extremities Exam Extremities Exam: absent: Calf Tenderness, Pedal Edema - Neurological Exam Neurological Exam: Awake, CN II-XII Intact, Normal Gait, Oriented x3, Reflexes Normal - Psychiatric Exam Psychiatric exam: Normal Mood - Skin Skin Exam: Normal Color, Warm Assessment and Plan (1) Influenza Status: Acute (2) Pneumonia Status: Acute - Assessment and Plan (Free Text) Plan: ON iv CEFEPIME 1 G EVERY 8 HOURLY 10/30/18 CONTINUE ZITHROMAX 500 MG iv PIGGYBACK ONCE A DAY DAILY. 10/26/18 QFT -gOLD tb - P SPUTUM AF[employer] X3 IN PROGRESS OFF PO TAMIFLU 75 MG BY MOUTH TWICE A DAY .-COMPLETED ON DROPLET PRECAUTIONS FOR INFLUENZA.
--- NOTE | 2018-11-02 19:59 | CP.PCM.CON ---
History of Present Illness - History of Present Illness History of Present Illness: Patient was seen and examined at bedside. Resting comfortably in bed. No acute events noted overnight. Patient states that he feels somewhat better overall today. He denies any subjective fever/chills, dyspnea, nausea, vomiting, myalgi a, diarrhea, or abdominal pain. 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 Exam: Gen: No acute distress. AAOx3 HEENT: Moist mucosa. Card: RRRR. Lungs: No respiratory distress or tachypnea. (+) Decreased breath sounds bilaterally. Abd: Soft, non-distended. Normal bowel sounds. No tenderness to palpation. A&P: 1. Influenza, acute - Flu A positive (10/26) - Afebrile (98.0 F) checked at bedside, RR 20, HR 81, Sat 95% on RA - Continue current medications 2. Pneumonia, acute - Strep PNA and Legionella negative - Cultures negative to date - CXR today (11/01) shows some interval improvement compared to prior imaging - Pending mycobacteria and quanteferon gold - Continue cefepime - Bronchoscopy not required at this point. Past Patient History - Infectious Disease Hx of Infectious Diseases: None - Past Medical History & Family History Past Medical History?: Yes - Past Social History Smoking Status: Never Smoked - CARDIAC Hx Cardiac Disorders: Yes Hx Hypercholesterolemia: Yes Hx Hypertension: Yes - PULMONARY Hx Respiratory Disorders: No - NEUROLOGICAL Hx Neurological Disorder: No - HEENT Hx HEENT Problems: No - RENAL Hx Chronic Kidney Disease: No - ENDOCRINE/METABOLIC Hx Endocrine Disorders: No - HEMATOLOGICAL/ONCOLOGICAL Hx Blood Disorders: No - INTEGUMENTARY Hx Dermatological Problems: No - MUSCULOSKELETAL/RHEUMATOLOGICAL Hx Musculoskeletal Disorders: No Hx Falls: No - GASTROINTESTINAL Hx Gastrointestinal Disorders: No - GENITOURINARY/GYNECOLOGICAL Hx Genitourinary Disorders: No - PSYCHIATRIC Hx Psychophysiologic Disorder: No Hx Substance Use: No - SURGICAL HISTORY Hx Surgeries: No - ANESTHESIA Hx Anesthesia: No Meds Home Medications: Home Medication List Medication Instructions Recorded Confirmed Type Oseltamivir Phosphate [Tamiflu] 75 mg PO BID #10 capsule 10/26/18 Rx Allergies/Adverse Reactions: Allergies Allergy/AdvReac Type Severity Reaction Status Date / Time No Known Allergies Allergy Verified 10/26/18 13:23 - Medications Medications: Current Medications Acetaminophen (Tylenol 325mg Tab) 650 mg PO Q6 PRN PRN Reason: for pain and fever Last Admin: 10/28/18 01:04 Dose: 650 mg Enoxaparin Sodium (Lovenox) 40 mg SC DAILY [facility] Last Admin: 11/02/18 09:49 Dose: 40 mg Famotidine (Pepcid) 20 mg PO BID [facility] Last Admin: 11/02/18 18:12 Dose: 20 mg Cefepime HCl 1 gm/ Dextrose 50 mls @ 100 mls/hr IVPB Q8H [facility]; Protocol Last Admin: 11/02/18 18:51 Dose: 100 mls/hr Azithromycin 500 mg/ Sodium (Chloride) 250 mls @ 250 mls/hr IVPB DAILY [facility]; Protocol Last Admin: 11/02/18 09:46 Dose: 250 mls/hr Results - Vital Signs Recent Vital Signs: Last Vital Signs Temp 99.2 F 11/02/18 16:53 Pulse 96 H 11/02/18 16:53 Resp 18 11/02/18 16:53 BP 128/81 11/02/18 16:53 Pulse Ox 96 11/02/18 16:53 - Labs Result Diagrams: 11/01/18 11:18 11/01/18 07:12
--- NOTE | 2018-11-03 02:01 | PN ---
DATE: 11/02/2018 SUBJECTIVE: The patient is a 33-year-old male. The patient was seen and examined on the bedside on 11/02/2018. The patient is looking comfortable. No shortness of breath. No chest pain, no palpitations. Positive cough with phlegm, whitish in color. No fever, no chills. No hematuria, no hematochezia. PHYSICAL EXAMINATION: VITAL SIGNS: Temperature 98.1, pulse 94, respiratory rate 20, blood pressure 110/67, pulse oximetry 95. HEENT: Head, normocephalic, atraumatic. Eyes: PERRLA. Extraocular muscles intact. Conjunctivae clear. Nose patent. Mucous membranes are moist. NECK: Supple. No carotid bruits, JVD, or thyromegaly. CHEST: Bilaterally symmetrical. HEART: S1 and S2 positive. LUNGS: Clear to auscultation. ABDOMEN: Soft. Bowel sounds present. No organomegaly. EXTREMITIES: No edema. No cyanosis. NEUROLOGIC: The patient is awake, alert. Moving all four extremities. No focal deficits. MEDICATIONS: Tylenol, Lovenox, Pepcid, cefepime, azithromycin. LABORATORY DATA: White blood cells 7.4, hemoglobin 14.8, hematocrit 44.6, platelets 406. Sodium 140, potassium 4.8, BUN 50, creatinine 0.6, glucose 88. ASSESSMENT AND PLAN: Mr. Chon Sánchez is a 33-year-old male with thrombocytosis, came with influenza, pneumonia, on cefepime 1 g IV every 8 hourly stared on 10/30/2018. Continue azithromycin 500 mg IV piggyback once or two daily, started on 10/26/2018. Infectious Disease, Kevyn Barragan MD, is on the case. QuantiFERON gold, the test for tuberculosis status is pending. Completed the Tamiflu 75 p.o. twice a day, drop let precautions for the influenza. Seen by apartment maintenance manager Dr. Jason Lehman. Continue current medication. History of pneumonia. Streptococcus pneumoniae and legionella negative. Cultures negative up to date. Chest x-ray today shows some interval improvement compared to prior imaging. Bronchoscopy not required at this point as per apartment maintenance manager. We will follow up. Jasmin Omer MD [facility]
[2018-11-03] MEDS: Azithromycin 500 MG in Sodium Chloride 0.9% 250 ML IVPB SCH (10:14)
[2018-11-03] MEDS: Enoxaparin 40 mg Syringe SC SCH (10:14)
--- NOTE | 2018-11-03 15:04 | CP.PCM.PN ---
Subjective - Date & Time of Evaluation Date of Evaluation: 11/03/18 Time of Evaluation: 10:30 - Subjective Subjective: Mr. Sánchez was seen and examined at bedside. Resting comfortably in bed. No acute events noted overnight. Patient states that he feels significantly better overall today since the beginning of his admission. His breathing feels much improved. He denies any subjective fever/chills, dyspnea, nausea, vomiting, myalgia, diarrhea, or abdominal pain. Patient expresses his desire to return home and go back to work. It was explained to him the importance of preventing transmission of any respiratory infections, especially influenza. Patient expressed his understanding. No other complaints are noted at this time. Exam: Gen: No acute distress. AAOx3 HEENT: Moist mucosa. Card: RRRR. No murmurs. Lungs: No respiratory distress or tachypnea. CTA bilaterally Abd: Soft, non-distended. Normal bowel sounds. No tenderness to palpation. A&P: 1. Influenza, acute - Flu A positive (10/26) - Completed Tamiflu course on 10/31 - Afebrile 98.6 F, RR 20, HR 86, Sat 95% on RA - Patient feels better and has improved clinically; he is medically stable from a pulmonary standpoint and clear for discharge at this time. 2. Pneumonia, acute - Strep PNA and Legionella negative - Cultures negative to date - CXR today (11/01) shows some interval improvement compared to prior imaging - TB panel negative - May switch to oral antibiotics - May return to work with light duties; please provide patient with a note for work and his housing [facility] Objective - Vital Signs/Intake and Output Vital Signs (last 24 hours): Temp Pulse Resp BP Pulse Ox 98.6 F 86 20 120/73 95 11/02/18 23:26 11/02/18 23:26 11/02/18 23:26 11/02/18 23:26 11/02/18 23:26 Intake and Output: 11/03/18 11/03/18 06:59 18:59 Intake Total 170 Balance 170 - Medications Medications: Current Medications Acetaminophen (Tylenol 325mg Tab) 650 mg PO Q6 PRN PRN Reason: for pain and fever Last Admin: 10/28/18 01:04 Dose: 650 mg Famotidine (Pepcid) 20 mg PO BID [facility] Last Admin: 11/03/18 10:14 Dose: 20 mg Cefepime HCl 1 gm/ Dextrose 50 mls @ 100 mls/hr IVPB Q8H KENISHA; Protocol Last Admin: 11/03/18 12:19 Dose: 100 mls/hr Azithromycin 500 mg/ Sodium (Chloride) 250 mls @ 250 mls/hr IVPB DAILY KENISHA; Protocol Last Admin: 11/03/18 10:14 Dose: 250 mls/hr - Labs Labs: 11/01/18 11:18 11/01/18 07:12
--- NOTE | 2018-11-03 23:49 | CP.PCM.PN ---
Subjective - Date & Time of Evaluation Date of Evaluation: 11/03/18 Time of Evaluation: 23:48 - Subjective Subjective: afebrile, denies SOB, states feeling betterand less congested CXR 11/01/18 IMPROVEMENT PATCHY INFILTRATE.. SEEN BY PULMONARY. AWAIT QFT GOLD TB TEST. SPUTUM FOR AFB X 1 -ve smear. Objective - Vital Signs/Intake and Output Vital Signs (last 24 hours): Temp Pulse Resp BP Pulse Ox 98.1 F 96 H 20 142/84 96 11/03/18 15:00 11/03/18 15:00 11/03/18 15:00 11/03/18 15:00 11/03/18 15:00 Intake and Output: 11/03/18 11/04/18 18:59 06:59 Intake Total 900 Balance 900 - Medications Medications: Current Medications Acetaminophen (Tylenol 325mg Tab) 650 mg PO Q6 PRN PRN Reason: for pain and fever Last Admin: 10/28/18 01:04 Dose: 650 mg Famotidine (Pepcid) 20 mg PO BID KENISHA Last Admin: 11/03/18 19:44 Dose: 20 mg Cefepime HCl 1 gm/ Dextrose 50 mls @ 100 mls/hr IVPB Q8H KENISHA; Protocol Last Admin: 11/03/18 19:44 Dose: 100 mls/hr Azithromycin 500 mg/ Sodium (Chloride) 250 mls @ 250 mls/hr IVPB DAILY KENISHA; Protocol Last Admin: 11/03/18 10:14 Dose: 250 mls/hr - Labs Labs: 11/01/18 11:18 11/01/18 07:12 - Constitutional Appears: No Acute Distress - Head Exam Head Exam: NORMAL INSPECTION - Eye Exam Eye Exam: EOMI, PERRL - ENT Exam ENT Exam: Normal Oropharynx - Neck Exam Neck Exam: Normal Inspection - Respiratory Exam Respiratory Exam: Rhonchi, NORMAL BREATHING PATTERN (few scatterred rhonchi.) - Cardiovascular Exam Cardiovascular Exam: REGULAR RHYTHM, +S1, +S2 - GI/Abdominal Exam GI & Abdominal Exam: Soft, Normal Bowel Sounds - Extremities Exam Extremities Exam: Normal Capillary Refill. absent: Calf Tenderness, Pedal Edema - Neurological Exam Neurological Exam: Alert, Awake, CN II-XII Intact, Normal Gait, Oriented x3, Reflexes Normal - Psychiatric Exam Psychiatric exam: Normal Mood - Skin Skin Exam: Normal Color, Warm Assessment and Plan (1) Influenza Status: Acute (2) Pneumonia Status: Acute - Assessment and Plan (Free Text) Plan: ON iv CEFEPIME 1 G EVERY 8 HOURLY 10/30/18 CONTINUE ZITHROMAX 500 MG iv PIGGYBACK ONCE A DAY DAILY. 10/26/18 QFT -gOLD tb - P SPUTUM AFB X3 IN PROGRESS pulmonary f/u appreciated f/u SPUTUM X2 -AFB -P OFF PO TAMIFLU 75 MG BY MOUTH TWICE A DAY .-COMPLETED. ON DROPLET PRECAUTIONS FOR INFLUENZA.
--- NOTE | 2018-11-04 02:45 | PN ---
DATE: 11/03/2018 SUBJECTIVE: The patient was seen and examined at the bedside on 11/03/2018 and looking comfortable. Cough is better. Shortness of breath is better. No hematuria. No hematochezia. No swelling of the leg. No chest pain. No palpitations. No headache. No dizziness. PHYSICAL EXAMINATION: VITAL SIGNS: Temperature 98.6, pulse 83, respiratory rate 20, blood pressure 120/73, pulse oximetry 95%. HEENT: Head: Normocephalic, atraumatic. Eyes: PERRLA. Extraocular muscles intact. Conjunctivae clear. Nose patent. Mucous membranes moist. NECK: Supple. No carotid bruit. No JVD or thyromegaly. CHEST: Bilaterally symmetrical. HEART: S1, S2 positive. LUNGS: Clear to auscultation. ABDOMEN: Soft. Bowel sounds present. No organomegaly. EXTREMITIES: No edema. No cyanosis. NEUROLOGIC: The patient is awake, alert. Moving all four extremities. No focal deficits. MEDICATIONS: Tylenol, Pepcid, dextrose, cefepime, azithromycin. LABORATORY DATA: White blood cell 7.4, hemoglobin 14.8, hematocrit 44.6, platelets 407. Sodium 140, potassium 4.8, BUN 15, creatinine 0.9, glucose 88. ASSESSMENT AND PLAN: Mr. Princess Givens is a 33-year-old male who came with acute influenza, completed Tamiflu, pneumonia, and Legionella negative. Cultures negative. Chest x-ray on 11/01/2018 shows some interval improvement, compared to past. Tuberculosis panel negative. According to Pulmonary, we can switch in to p.o. medications and discharge the patient home. Seen by Dr. Kevyn Barragan also. Serology is positive for flu, negative for Legionella, negative for pneumonia antigen. Negative QuantiFERON test. Sputum cultures are negative also. No growth after five days. Gastrointestinal and deep venous thrombosis prophylaxis. If Pulmonary and Infectious Disease will clear, we will discharge the patient home. We will follow up. Jasmin Omer MD ANTHONY
[2018-11-04 08:11] VITALS: BP 131/87; PULSE 72; RESP 20; TEMP 98.1; O2SAT 96
[2018-11-04 09:09] LABS: HEMOGLOBIN 13.5 g/dL (12.0-18.0); MEAN CELL VOLUME 90.2 fL (80.0-94.0); MEAN CORPUSCULAR HGB CONC 33.2 g/dL (33.0-37.0); MEAN PLATELET VOLUME 7.4 fL (7.2-11.7); RBC 4.51 Mil/uL (4.40-5.90); RED CELL DISTRIBUTION WIDTH 13.3 % (11.5-14.5); WHITE BLOOD COUNT 6.7 K/uL (4.8-10.8)
[2018-11-04 09:37] LABS: BLOOD UREA NITROGEN 16 mg/dL (9-20); CALCIUM 9.1 mg/dl (8.6-10.4); GFR NON-AFRICAN AMERICAN > 60
[2018-11-04] MEDS: Azithromycin 500 MG in Sodium Chloride 0.9% 250 ML IVPB SCH (10:42)
--- NOTE | 2018-11-04 13:42 | CP.PCM.PN ---
Subjective - Date & Time of Evaluation Date of Evaluation: 11/04/18 Time of Evaluation: 13:41 Objective - Vital Signs/Intake and Output Vital Signs (last 24 hours): Temp Pulse Resp BP Pulse Ox 98.1 F 72 20 131/87 96 11/04/18 08:11 11/04/18 08:11 11/04/18 08:11 11/04/18 08:11 11/04/18 08:11 Intake and Output: 11/04/18 11/04/18 06:59 18:59 Intake Total 50 Balance 50 - Medications Medications: Current Medications Acetaminophen (Tylenol 325mg Tab) 650 mg PO Q6 PRN PRN Reason: for pain and fever Last Admin: 10/28/18 01:04 Dose: 650 mg Famotidine (Pepcid) 20 mg PO BID [facility]ENISHA Last Admin: 11/04/18 10:42 Dose: 20 mg Cefepime HCl 1 gm/ Dextrose 50 mls @ 100 mls/hr IVPB Q8H KENISHA; Protocol Last Admin: 11/04/18 12:06 Dose: 100 mls/hr Azithromycin 500 mg/ Sodium (Chloride) 250 mls @ 250 mls/hr IVPB DAILY KENISHA; Protocol Last Admin: 11/04/18 10:42 Dose: 250 mls/hr - Labs Labs: 11/04/18 08:57 11/04/18 08:57 Assessment and Plan - Assessment and Plan (Free Text) Assessment: FOLLOW UP WITH DR SANDRA IN HER OFFICE ------CALL FOR APPOINTMENT FOLLOW UP WITH DR STAFFORD IN HER OFFICE ------CALL FOR APPOINTMENT CONTINUE HOME MEDICATION NEW PRESCRIPTION GIVEN AUGMENTIN PO ONE TAB Q12H FOR 7 DAYS FLORASTOR 205 MG PO BID FOR 7 DAYS ACTIVITY TOLERATED CALL DR SANDRA OR GO TO THE EMERGENCY ROOM IF SYMPTOM RETURN OR WORSENING
== END 2018-11-04 16:55 | disposition home or self-care (01) | DRG 90 ==
LOC: C.ER 13:16 → C.9E 19:18 → C.5S 21:13
PROVIDERS: ADMIT Internal Medicine; ATTEND Internal Medicine
DX: J09.X1 Influenza due to identified novel influenza A virus with pneumonia (principal); E78.00 Pure hypercholesterolemia, unspecified; E83.51 Hypocalcemia; I10 Essential (primary) hypertension; D47.3 Essential (hemorrhagic) thrombocythemia

== ENCOUNTER 2018-12-13 10:48 | Outpatient (CLI) | payer MEDICAID | END 2018-12-13 10:49 | disposition home or self-care (01) | LOC: C.CTH 10:48 ==

== ENCOUNTER 2019-02-07 07:15 | Outpatient (CLI) | payer MEDICAID | END 2019-02-07 07:16 | disposition home or self-care (01) | LOC: C.PAT 07:15 | DX: Z01.818 Encounter for other preprocedural examination (principal); J34.2 Deviated nasal septum; J34.3 Hypertrophy of nasal turbinates; J32.0 Chronic maxillary sinusitis; J32.2 Chronic ethmoidal sinusitis; J32.3 Chronic sphenoidal sinusitis ==

== ENCOUNTER 2019-02-22 06:08 | Day surgery (SDC) | payer MEDICAID ==
[2019-02-22 06:33] VITALS: BMI 41.6
[2019-02-22] MEDS ORDERED: Midazolam 2 MG/2 ML VIAL ONE ×2 (07:10→09:15)
[2019-02-22] MEDS ORDERED: Propofol 10 mg/ml Inj (20 ML) ONE (07:10)
[2019-02-22] MEDS ORDERED: Lidocaine Hydrochloride 5 ML INJ ONE (07:11)
[2019-02-22] MEDS ORDERED: Succinylcholine Chloride 20 mg/ml Syr (5 ml) IV ONE (07:13)
[2019-02-22] MEDS ORDERED: Lidocaine/Epinephrine 1% 1:100000 10 ML IJ ONE (07:53)
[2019-02-22] MEDS ORDERED: EPINEPHrine 1:1000 Nasal Sol(30mL) ONE (07:53)
[2019-02-22] MEDS ORDERED: ceFAZolin 1 gm in NS 2 GM/200 ML BAG IVPB ONE (07:54)
[2019-02-22] MEDS ORDERED: Neostigmine 1:1000 (1 mg/ml) Inj ONE (09:44)
[2019-02-22] MEDS ORDERED: Acetaminophen-Codeine 300/30 mg Tab PO PRN (09:51)
[2019-02-22] MEDS ORDERED: Dextrose 5%/0.45% NS 1,000 ML IV SCH (10:00)
[2019-02-22] MEDS ORDERED: HYDROmorphone 0.5 mg/0.5 ml ISec IVP PRN (10:09)
[2019-02-22] MEDS ORDERED: Lactated Ringer's 1,000 ML IV SCH (10:15)
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
[2019-02-22 14:59] VITALS: BP 176/90; PULSE 90; RESP 18; TEMP 97; O2SAT 100
--- NOTE | 2019-02-22 21:39 | OP ---
PROCEDURE DATE: 02/22/2019 PREOPERATIVE DIAGNOSES: Deviated septum, large turbinates, sinusitis. POSTOPERATIVE DIAGNOSES: Deviated septum, large turbinates, sinusitis. PROCEDURES: Septoplasty, bilateral endoscopic maxillary antrostomy, bilateral endoscopic ethmoidectomy, bilateral endoscopic sphenoidotomy, bilateral endoscopic inferior turbinate reduction. SIGNIFICANT FINDINGS: Deviated septum, large turbinates, chronic sinusitis changes noted on the ethmoid sinuses, maxillary antrum stenosed on both sides, sphenoid antrum stenosed on both sides. DESCRIPTION OF PROCEDURE: The patient was brought into the room, placed in supine position. Anesthesia was initiated through an ET tube. The patient was draped in the usual manner. Navigation was set up and used throughout the case in order to make sure that the skull base and orbit were not entered. Adrenaline-soaked pledgets were inserted into nasal cavity. They remained there for five minutes and removed. The septum was injected with lidocaine with epinephrine on both sides. A [place] incision was made on the left, and mucoperichondrial flap was raised. A vertical incision was made in the cartilage leaving a 0.5 cm anterior and superior strut, and mucoperichondrial flap was raised on the other side. Deviated portion of the cartilage and bone were removed using forceps and chisel. A quilting suture was used to suture the two flaps together and close the [place] incision. A 0-degree scope was inserted into cavity. The inferior turbinates were noted to be enlarged and reduced in size, going from inferior to superior, anterior to posterior direction on both sides, first on the left then on the right. Bleeding was controlled using suction cautery. Attention was turned to left. The middle turbinate was injected with lidocaine with epinephrine and medialized. The uncinate process was medialized using a [place] elevator and removed using forceps. A debrider was used to enter the ethmoid bulla inferomedially, going posterior to the basal lamella, anterior superiorly until the ethmoid bulla was removed. The basal lamella was entered. Posterior ethmoid cells were entered and opened. Skull base was identified and followed anteriorly all the way to the area anterior ethmoid air cells. Curved suction hooked up navigation was used to locate the maxillary antrum which was noted to be stenosed and opened using forceps. The sphenoid antrum was located using a straight suction and noted to be stenosed opened using forceps. Attention was turned to the other side. After bleeding was controlled using adrenaline-soaked pledgets and suction cautery, the middle turbinate was injected lidocaine with epinephrine and medialized. The uncinate process was medialized using a [place] elevator and removed. Ethmoid bulla was entered inferomedially using a debrider, going posterior to the basal lamella, anterior and superiorly until the ethmoid bulla was removed. The basal lamella was entered. Posterior ethmoid cells were entered and opened. Skull base was identified and followed anteriorly all the way to the area of the anterior ethmoid air cells. A curved suction hooked up to navigation was used to locate the maxillary antrum which was noted to be stenosed and opened using forceps. Suction was used to locate the sphenoid antrum which was noted to be stenosed and opened using forceps. Bleeding was controlled using adrenaline-soaked pledgets and suction cautery. Splints were placed. Stents were placed. The patient was taken off anesthesia and taken to the recovery room in stable manner. Cristopher Escalona MD
== END 2019-02-22 15:13 | disposition home or self-care (01) ==
LOC: C.SDS 06:08
PROVIDERS: ATTEND Otolaryngology
DX: J34.2 Deviated nasal septum (principal); J34.3 Hypertrophy of nasal turbinates; J32.0 Chronic maxillary sinusitis; I10 Essential (primary) hypertension; E78.00 Pure hypercholesterolemia, unspecified; Z87.442 Personal history of urinary calculi; F41.9 Anxiety disorder, unspecified; F32.9 Major depressive disorder, single episode, unspecified; Z79.899 Other long term (current) drug therapy
CPT/HCPCS: 30140; 30520; 31255; 31256; 31287; 88304; J0690; J1100; J2250; J2704; J2710; J3010